=== PATIENT | female | born 1940 | race Caucasian/White ===

== ENCOUNTER 2021-10-10 09:25 | Observation (INO) | payer MEDICARE, SELFPAY ==
--- NOTE | ~2021-10-10 | CT_ITS ---
EXAMINATION: CT abdomen pelvis w con DATE: 10/10/2021 11:01 INDICATION: Right lower quadrant pain and nausea TECHNIQUE: Computed tomography (CT) of the abdomen and pelvis was performed with 100 cc Omnipaque 350 intravenous contrast. The dose-length product was 244.15 mGy-cm. Automated exposure control and iter ative reconstruction technique were employed. COMPARISON: No prior studies for comparison. FINDINGS: Lung bases are unremarkable. No significant pleural or pericardial effusion. There is mild atherosclerosis of the aorta without aneurysm. Small hiatal hernia. Fatty infiltration of the liver. Gallbladder is present. These spleen contains c alcified granulomas. Mild pancreatic ductal dilation. There are pancreatic calcifications suggesting chronic pancreatitis. There is a right parapelvic renal cyst. There is a thickened enhancing appendix with surrounding inflammation, consistent with acute appendicitis. No evidence for perforation or ab scess. Colonic diverticulosis without evidence for diverticulitis. Moderate lumbar spondylosis partic ularly at L3-4. IMPRESSION: 1. Acute uncomplicated appendicitis. Reviewed, dictated and finalized at location A.
--- NOTE | ~2021-10-10 | XR_ITS ---
EXAMINATION: XR chest 2V 10/10/2021 10:56 INDICATION: Abdominal pain PROCEDURE: 2 view chest COMPARISON: No prior studies for comparison. FINDINGS: The lungs are clear. The cardiomediastinal silhouette is within normal limits. There are no pleural effusions. There is no pneumothorax suspected. IMPRESSION: 1: NO ACUTE CARDIOPULMONARY DISEASE. Reviewed, dictated and finalized at location A.
[2021-10-10 09:30] VITALS: BP 121/66; PULSE 110; RESP 18; TEMP 36.7; O2SAT 99
--- NOTE | 2021-10-10 09:40 | ECG_ITS ---
Measurements Intervals [place] Rate: 106 P: 90 [place]: 187 QRS: 40 QRSD: 81 T: 66 QT: 345 QTc: 458 Interpretive Statements SINUS TACHYCARDIA NONSPECIFIC ST & T-WAVE ABNORMALITY ABNORMAL ECG NO PREVIOUS ECG AVAILABLE FOR COMPARISON Electronically Signed On 10-10-2021 12:20:51 CDT by Nasir Onofre M.D.
[2021-10-10 09:44] LABS: Basophils Percent Auto 0.2 % (0.2-1.2); Hematocrit 39.3 % (37.0-47.0); Hemoglobin 13.1 g/dL (12.0-15.0); Immature Granulocyte Absolute 0.06 K/mm3 (0.00-0.031); Immature Granulocyte Percent A 0.4 % (0-0.5); Lymphocytes Absolute Auto 0.81 K/mm3 (0.9-3.2); Lymphocytes Percent Auto 5.3 % (18.3-44.2); Mean Corpuscular HGB Conc 33.3 g/dl (32-36); Mean Corpuscular Hemoglobin 31.7 pg (26-34); Mean Corpuscular Volume 95.2 fl (80-100); Mean Platelet Volume 9.8 fl (7.4-10.4); Monocytes Absolute Auto 0.9 K/mm3 (0.1-0.6); Monocytes Percent Auto 6.1 % (2.6-8.5); Neutrophils Absolute Auto 13.4 K/mm3 (1.3-6.7); Platelet Count Result 166 k/mm3 (150-375); Red Blood Count 4.13 M/mm3 (4.2-5.4); Red Cell Distribution Width 13.2 % (11.5-14.5); White Blood Count 15.2 K/mm3 (4.5-10.0)
[2021-10-10 09:56] LABS: Alanine Aminotransferase 26 U/L (4-35); Albumin Level 4.8 g/dL (3.5-5.1); Alkaline Phosphatase 45 U/L (38-126); Anion Gap 8 mmol/L (8-16); Aspartate Amino Transferase 30 U/L (14-36); Bilirubin,Total 0.8 mg/dL (0.2-1.3); Blood Urea Nitrogen 17 mg/dL (7-17); Calcium 9.5 mg/dL (8.4-10.2); Carbon Dioxide 28 mmol/L (22-30); Chloride 100 mmol/L (98-107); Estimated CRCL calculation 39 ml/min; Estimated Glomerular Filt Rate > 60; Glucose 132 mg/dL (65-110); Lipase 70 U/L (23-300); Potassium 3.8 mmol/L (3.4-5.0); Sodium 136 mmol/L (137-145)
--- NOTE | 2021-10-10 09:59 | ED.ABDPAIN ---
HPI - Abdominal Pain General Chief Complaint: Abdominal Pain <Kourtney Bowman APRN - Last Filed: 10/10/21 13:17> Stated Complaint: abd pain <Kourtney Bowman SALES LEAD - Last Filed: 10/10/21 13:17> Time Seen by Provider: 10/10/21 09:39 <Kourtney Bowman APRN - Last Filed: 10/10/21 13:17> Source: patient <Kourtney Bowman APRN - Last Filed: 10/10/21 13:17> Mode of arrival: ambulatory <Kourtney Bowman APRN - Last Filed: 10/10/21 13:17> Limitations: no limitations <Kourtney Bowman APRN - Last Filed: 10/10/21 13:17> History of Present Illness HPI narrative: 81-year-old female presents today with complaints of nausea and abdominal pain that started last night around suppertime. Patient states she thought that it was from the fish that she ate. Patient arrived at the restaurant at 6 started with upper abdominal pain with some nausea at 7. Patient denies fever, constipation, diarrhea, body aches, or chills. Patient does have a history of SIBO. Patient denies any abdominal surgeries in the past. <Kourtney Bowman APRN - Last Filed: 10/10/21 13:17> Related Data Home Medications: Home Medications Medication Instructions Recorded Confirmed atorvastatin 10/10/21 10/10/21 duloxetine mg PO 10/10/21 duloxetine mg PO 10/10/21 famotidine 10/10/21 mirabegron [Myrbetriq] mg PO 10/10/21 pantoprazole PO 10/10/21 <Kourtney Bowman APRN - Last Filed: 10/10/21 13:17> Allergies/Adverse Reactions: Allergies Allergy/AdvReac Type Severity Reaction Status Date / Time No Known Allergies Allergy Verified 10/10/21 09:34 <Kourtney Bowman APRN - Last Filed: 10/10/21 13:17> Review of Systems Review of Systems: CONSTITUTIONAL: Denies fever, chills, or sweats. EYES: Denies visual changes, redness, or discharge. ENT: Denies rhinorrhea, congestion, sore throat, or otalgia. CARDIOVASCULAR: Denies chest pain, palpitations, or edema. RESPIRATORY: Denies cough or dyspnea. GASTROINTESTINAL: Nausea and abdominal pain. One small emesis. Denies constipation or diarrhea. GENITOURINARY: Denies dysuria or hematuria. SKIN: Denies rash or itching. MUSCULOSKELETAL: Denies back pain, joint pain, or myalgia. NEUROLOGIC: Denies headache, numbness, dizziness, or weakness. PSYCHIATRIC: Denies anxiety or depression. <Kourtney Bowman APRN - Last Filed: 10/10/21 13:17> [facility] Past Medical History Medical History: Medical History (Updated 10/10/21 @ 13:17 by Kourtney Bowman APRN) Small intestinal bacterial overgrowth (SIBO) <Kourtney Bowman APRN - Last Filed: 10/10/21 13:17> Exam Narrative: GENERAL: Well-appearing, well-nourished, and in no acute distress. HEAD: Normocephalic, atraumatic. EYES: PERRLA and EOMI. ENT: Nares clear, no rhinorrhea or epistaxis. Mucous membranes moist. Oropharynx without tonsillar hypertrophy exudate or other lesions. Bilateral TMs pearly baez nonbulging NECK: Supple. No adenopathy or masses. No carotid bruits or JVD CHEST: Clear to auscultation. No respiratory distress. No wheezes rales or rhonchi HEART: Regular rate and rhythm. No murmur heard. Normal peripheral pulses. ABDOMEN: Right lower quadrant tenderness and guarding. Soft nondistended, normal active bowel sounds. EXTREMITIES: Normal range of motion. No edema. SKIN: Warm, dry, no rash. NEURO: No focal deficits. Alert and oriented x3. PSYCH: Normal mood and affect. <Kourtney Bowman APRN - Last Filed: 10/10/21 13:17> Course Course Emergency Course: Labs and CT reviewed with patient and daughter. Patient aware of admission and need for IV abx. All in agreement with plan of care. <Kourtney Bowman APRN - Last Filed: 10/10/21 13:17> MATH AND PHYSICS INSTRUCTOR/PA Physician Supervision For this encounter, I have reviewed the MATH AND PHYSICS INSTRUCTOR documentation, treatment plan and medical decision making: And I have had [id number] time with the patient. On exam the abdomen is soft tenderness palpation the right lower quadrant mild tenderness
[2021-10-10 10:14] LABS: Troponin I < 0.012 ng/mL (0.000-0.034)
[2021-10-10 10:16] LABS: CRP 2.2 mg/dL (<1.0)
[2021-10-10 10:34] LABS: Add Urine Microscopic? YES; Amorphous Sediment Urine Few; Appearance Urine Cloudy (Clear); Bilirubin Urine Negative (Negative); Blood Urine 1+ (Negative); Color Urine Yellow (Yellow); Glucose Urine UA Negative (Negative); Ketones Urine Negative (Negative); Leukocyte Esterase Ur Negative LEU/UL (Negative); Mucus Urine Rare /lpf; Nitrate Urine Negative (Negative); Protein Urine Negative (Negative); Specific Grav Ur 1.016 (1.001-1.035); Urobilinogen Urine Negative mg/dL (<2.0)
[2021-10-10 10:39] LABS: Lactic Acid Reflex 1.6 mmol/L (0.7-2.1)
[2021-10-10 10:40] LABS: Partial Thromboplastin Time 23.6 SECONDS (22.3-36.8); Prothrombin Time 12.6 Seconds (11.1-14.7)
[2021-10-10] MEDS: SODIUM CHLORIDE 0.9% IV 1,000 ML 999 ML IV CONT (11:01)
[2021-10-10 11:28] VITALS: BP 117/67; PULSE 101; RESP 20; O2SAT 99
[2021-10-10 12:53] VITALS: BP 112/67; PULSE 101; RESP 16; TEMP 36.9; O2SAT 97
[2021-10-10 12:54] VITALS: BMI 24.2
[2021-10-10] MEDS: SODIUM CHLORIDE 0.9% IV 1,000 ML 125 ML IV CONT ×2 (12:54→21:33)
[2021-10-10 13:15] VITALS: BMI 24.2
--- NOTE | 2021-10-10 13:52 | ADMGEN ---
This patient, Sana Diez, was admitted to Medical Room 344-01. Patient/family oriented to hospital policies and general routines including ID bracelet, bed and alarms, visiting hours, pain management, procedures, bathroom and other care routines, personal items, smoking policy, room service/diet, and visiting hours. Information on how to activate the Rapid Response Team has been discussed. Patient/Family are encouraged to report perceived risks to care and to ask questions if they do not understand what they are told or what they should do.
--- NOTE | 2021-10-10 14:10 | PM.IMHP ---
H&P: HPI History of Present Illness Date/Time: 10/10/21 14:10 Chief Complaint: Mid and lower abdominal pain Narrative: This patient is a pleasant 81-year-old white female who is in the ED with her daughter when I interviewed them. She states that last evening she began having mid to lower abdominal pain and has more centered in the right lower quadrant now. Since arriving in the ER is more centered in the right lower quadrant and she has less pain than when she presented. ( patient was not sure whether she had received pain medicine here or not). She came today with complaints of nausea and abdominal pain that started last night around suppertime. Patient states she thought that it was from the fish that she ate. Patient arrived at the restaurant at 6 PM and then started with upper abdominal pain with some nausea at about 7PM . Patient denies fever, constipation, diarrhea, body aches, or chills. Patient does have a history of SIBO. Has not had recent problems with this. Patient initially denies any abdominal surgeries in the past then remember that she had had a tubal ligation bout 30 years ago.. ER workup included a CT scan which showed acute uncomplicated appendicitis. See plan below. Review of Systems Review of Systems: All systems reviewed & are unremarkable except as noted in HPI and below (HPI) Constitutional: Constitutional: Reports as per HPI, Denies chills and Denies fever(s) Eyes: Eyes: Reports no additional eye complaints ENT: Reports Normal hearing present and Denies dizziness Cardiovascular: Cardiovascular: Reports no additional cardiovascular complaints, Denies chest pain and Denies irregular heart rhythm Respiratory: Respiratory: Reports no additional respiratory complaints Gastrointestinal: Gastrointestinal: Reports no additional gastrointestinal complaints, Denies abdominal pain and Denies bloating Comments: Apparent history of bacterial overgrowth in the small bowel History of GERD on amantadine morning's and PPI (pantoprazole ) evenings Genitourinary: Genitourinary: Denies hematuria Comments: history of tubal ligation but no other heidi knee surgeries. Musculoskeletal: Musculoskeletal: Denies back pain Integumentary/Breasts: Skin/Breast: Reports system reviewed and no additional complaints, except as docu Neurologic: Reports Normal hearing present, Denies Abnormal speech present, Denies confusion and Denies dizziness Psychiatric: Psychiatric: Reports no additional psychiatric complaints and Denies confusion Endocrine: Endocrine: Reports no additional endocrine complaints Hematologic/Lymphatic: Hematologic/Lymphatic: Denies easy bleeding and Denies easy bruising Allergic/Immunologic: Allergic/Immunologic: Reports no additional allergic/immunologic complaints [facility] Past Medical History Medical History (Updated 10/10/21 @ 14:15 by Vicente Stahl MD) GERD without esophagitis (Unknown) Small intestinal bacterial overgrowth (SIBO) Surgical History Surgical History (Updated 10/10/21 @ 14:11 by Vicente Stahl MD) Hx of tubal ligation Social History Social History Smoking status: Never smoker Alcohol intake: current Drinks per week: 3 Substance use: never Spiritual care concerns: No Meds Home Medications and Allergies Home Medications Medication Instructions Recorded Confirmed Type aspirin 81 mg PO DAILY 10/10/21 10/10/21 History atorvastatin 10 mg PO DAILY 10/10/21 10/10/21 History clonazepam 0.5 mg PO DAILY PRN 10/10/21 10/10/21 History duloxetine 60 mg PO DAILY 10/10/21 10/10/21 History famotidine 40 mg PO DAILY 10/10/21 10/10/21 History levomefolate calcium 15 mg PO DAILY 10/10/21 10/10/21 History [L-Methylfolate] magnesium 400 mg PO DAILY 10/10/21 10/10/21 History mirabegron [Myrbetriq] 50 mg PO DAILY 10/10/21 10/10/21 History pantoprazole 40 mg PO DAILY 10/10/21 10/10/21 History potassium 99
[2021-10-10 17:04] VITALS: O2SAT 97
[2021-10-10 20:31] VITALS: BP 107/59; PULSE 93; RESP 18; TEMP 36.1; O2SAT 99
[2021-10-10] MEDS: traZODone HCL 50 MG TABLET PO (21:48)
[2021-10-11 05:13] VITALS: BP 103/52; PULSE 88; RESP 18; TEMP 36.1; O2SAT 99
[2021-10-11 05:36] LABS: Basophils Percent Auto 0.1 % (0.2-1.2); Eosinophils Absolute Auto 0.1 K/mm3 (0-0.3); Eosinophils Percent Auto 1.5 % (0-4.4); Hematocrit 32.5 % (37.0-47.0); Hemoglobin 10.5 g/dL (12.0-15.0); Immature Granulocyte Absolute 0.03 K/mm3 (0.00-0.031); Immature Granulocyte Percent A 0.4 % (0-0.5); Immature Platelet Fraction Pct 2.8 % (0.9-11.2); Lymphocytes Absolute Auto 1.28 K/mm3 (0.9-3.2); Lymphocytes Percent Auto 15.6 % (18.3-44.2); Mean Corpuscular HGB Conc 32.3 g/dl (32-36); Mean Corpuscular Hemoglobin 31.4 pg (26-34); Mean Corpuscular Volume 97.3 fl (80-100); Mean Platelet Volume 9.9 fl (7.4-10.4); Monocytes Absolute Auto 0.6 K/mm3 (0.1-0.6); Monocytes Percent Auto 7.2 % (2.6-8.5); Neutrophils Absolute Auto 6.2 K/mm3 (1.3-6.7); Neutrophils Percent Auto 75.2 % (45.5-73.1); Platelet Count Result 132 k/mm3 (150-375); Red Blood Count 3.34 M/mm3 (4.2-5.4); Red Cell Distribution Width 13.6 % (11.5-14.5); White Blood Count 8.2 K/mm3 (4.5-10.0)
[2021-10-11 05:44] LABS: Alanine Aminotransferase 33 U/L (4-35); Albumin Level 3.2 g/dL (3.5-5.1); Alkaline Phosphatase 33 U/L (38-126); Anion Gap 2 mmol/L (8-16); Aspartate Amino Transferase 38 U/L (14-36); Bilirubin,Total 0.8 mg/dL (0.2-1.3); Blood Urea Nitrogen 13 mg/dL (7-17); Calcium 7.7 mg/dL (8.4-10.2); Carbon Dioxide 24 mmol/L (22-30); Chloride 112 mmol/L (98-107); Estimated CRCL calculation 35 ml/min; Estimated Glomerular Filt Rate 60; Glucose 99 mg/dL (65-110); Potassium 3.6 mmol/L (3.4-5.0); Sodium 138 mmol/L (137-145)
[2021-10-11] MEDS: SODIUM CHLORIDE 0.9% IV 1,000 ML 125 ML IV CONT (05:53)
--- NOTE | 2021-10-11 07:34 | PM.PNGS ---
Progress Note: A&P Assessment and Plan (1) Acute appendicitis, uncomplicated: Onset Date: ~10/10/21 Code(s): K35.80 - Unspecified acute appendicitis Status: Acute Assessment and Plan: Patient seems to be responding well to conservative management with IV antibiotics. White count is down to normal patient is developing an appetite and has had no fever. She continues to have some tenderness on exam but feels as if she can get up and move. (2) GERD without esophagitis: Onset Date: Unknown Code(s): K21.9 - Gastro-esophageal reflux disease without esophagitis Status: Acute Assessment and Plan: Continue IV ppi this morning but change to p.o. this afternoon doing well. (3) Small intestinal bacterial overgrowth (SIBO): Onset Date: Unknown Code(s): K63.89 - Other specified diseases of intestine Status: Acute Assessment and Plan: Not really addressed during this admission. Time Spent With Patient Time with patient: 15 - 25 minutes Subjective Subjective Date/Time Seen: 10/11/21 07:34 Patient lying comfortably in bed when I entered the room. She states she still has some tenderness in the right lower quadrant but if no one is pushing not much pain less she rolls on that side. She has had a couple bowel movements overnight. She is not having nausea and is hungry. Review of Systems Review of Systems: All systems reviewed & are unremarkable except as noted in HPI and below Constitutional: Constitutional: Reports as per HPI, Denies chills and Denies fever(s) Cardiovascular: Cardiovascular: Denies chest pain and Denies dyspnea Respiratory: Respiratory: Reports no additional respiratory complaints and Denies dyspnea Gastrointestinal: Gastrointestinal: Reports as per HPI and Denies bloating Musculoskeletal: Musculoskeletal: Reports no additional musculoskeletal complaints Neurologic: Denies memory loss Psychiatric: Psychiatric: Denies anxiety and Denies memory loss Exam Const: General: cooperative, comfortable, alert and awake Orientation/consciousness: patient oriented x3 HENMT: Head: normal to inspection Mouth: Yes moist mucous membranes Eyes: Sclera: sclerae normal Pupils: Equal, round and reactive pupils present Neck: Neck: normal visual inspection and no JVD Chest: Chest palpation & inspection: normal inspection of the chest Resp: Effort & Inspection: normal respiratory effort Auscultation: clear to auscultation bilaterally Cardio: Jugular venous distension: no JVD Rate: regular rate GI: Inspection: normal to inspection GI Palp: Yes Soft to palpation and Yes Tenderness to palpation present (GI) ( Right lower quadrant with mild guarding) Other: no tenderness in any of the the other quadrants on exam. Neuro: General: patient oriented x3 Cranial nerves: Yes Equal, round and reactive pupils present Objective Data Vital Signs Vital Signs: Vital Signs - 24 hr 10/10/21 09:30 10/10/21 11:28 10/10/21 12:53 Temperature 36.7 C 36.9 C Pulse Rate 110 H 101 H 101 H Respiratory Rate 18 20 16 Blood Pressure 121/66 117/67 112/67 Pulse Oximetry 99 99 97 10/10/21 17:04 10/10/21 20:31 10/11/21 05:13 Temperature 36.1 C L 36.1 C L Pulse Rate 93 88 Respiratory Rate 18 18 Blood Pressure 107/59 L 103/52 L Pulse Oximetry 97 99 99 Intake/Output Intake/Output: Intake & Output 10/08/21 10/09/21 10/10/21 10/11/21 23:59 23:59 23:59 23:59 Intake Total 2780.56 1401.12 Output Total 600 400 Balance 2180.56 1001.12 Meds/Results Medications: Active Medications Generic Name Dose Route Start Last Admin Trade Name Freq PRN Reason Stop Dose Admin Hydrocodone Bitart/Acetaminophen 1 tab 10/10/21 12:03 Hydrocodone/Acetaminophen (*Crx) 5-325 Mg Tablet PO Q6H PRN Pain Rated 4-6 Clonazepam 0.5 mg 10/10/21 21:28 Clonazepam (*Crx) 0.5 Mg Tablet PO DAILY PRN Anxiety Duloxetine HCl 30 mg
[2021-10-11 08:00] VITALS: PULSE 88; RESP 18; O2SAT 97
[2021-10-11 08:39] VITALS: O2SAT 97
[2021-10-11] MEDS: PANTOPRAZOLE SODIUM IV 40 MG VIAL IV PUSH (09:09)
[2021-10-11] MEDS: DULoxetine HCL 30 MG CAPSULE.DR PO (09:09)
[2021-10-11] MEDS: MIRABEGRON 50 MG ER TABLET PO (09:09)
[2021-10-11 14:00] VITALS: BP 104/60; PULSE 98; RESP 16; TEMP 36.6; O2SAT 97
[2021-10-11 20:01] VITALS: BP 112/63; PULSE 99; RESP 18; TEMP 36.4; O2SAT 98
[2021-10-11] MEDS: HYDROcodone/acetaminophen (*CRX) 5-325 MG TABLET 1 TAB PO (20:07)
[2021-10-11 20:13] VITALS: O2SAT 98
[2021-10-11] MEDS: FAMOTIDINE 20 MG TABLET PO (23:08)
[2021-10-11] MEDS: traZODone HCL 50 MG TABLET PO (23:09)
[2021-10-12 05:26] LABS: Basophils Percent Auto 0.5 % (0.2-1.2); Eosinophils Absolute Auto 0.3 K/mm3 (0-0.3); Eosinophils Percent Auto 4.7 % (0-4.4); Hematocrit 32.3 % (37.0-47.0); Hemoglobin 10.6 g/dL (12.0-15.0); Immature Granulocyte Absolute 0.01 K/mm3 (0.00-0.031); Immature Granulocyte Percent A 0.2 % (0-0.5); Lymphocytes Percent Auto 25.6 % (18.3-44.2); Mean Corpuscular HGB Conc 32.8 g/dl (32-36); Mean Corpuscular Hemoglobin 31.7 pg (26-34); Mean Corpuscular Volume 96.7 fl (80-100); Monocytes Absolute Auto 0.7 K/mm3 (0.1-0.6); Monocytes Percent Auto 9.8 % (2.6-8.5); Neutrophils Absolute Auto 3.9 K/mm3 (1.3-6.7); Neutrophils Percent Auto 59.2 % (45.5-73.1); Platelet Count Result 126 k/mm3 (150-375); Red Blood Count 3.34 M/mm3 (4.2-5.4); Red Cell Distribution Width 13.4 % (11.5-14.5); White Blood Count 6.6 K/mm3 (4.5-10.0)
[2021-10-12 06:23] VITALS: BP 102/56; PULSE 89; RESP 16; TEMP 36.3; O2SAT 97
[2021-10-12 08:00] VITALS: PULSE 89; RESP 16; O2SAT 97
[2021-10-12] MEDS: FAMOTIDINE 20 MG TABLET PO (08:40)
[2021-10-12] MEDS: MIRABEGRON 50 MG ER TABLET PO (08:40)
[2021-10-12] MEDS: DULoxetine HCL 30 MG CAPSULE.DR PO (08:41)
[2021-10-12] MEDS: PANTOPRAZOLE SODIUM IV 40 MG VIAL IV PUSH (08:42)
--- NOTE | 2021-10-12 09:36 | PM.DS ---
DS: Admitting Diagnosis Discharge Date 10/12/21 Admitting Diagnosis Acute uncomplicated appendicitis GERD DS: Discharge Diagnosis Discharge Diagnosis (1) Acute appendicitis, uncomplicated: Onset Date: ~10/10/21 Code(s): K35.80 - Unspecified acute appendicitis Status: Acute (2) GERD without esophagitis: Onset Date: Unknown Code(s): K21.9 - Gastro-esophageal reflux disease without esophagitis Status: Acute Assessment and Plan: Remained stable. Treated with IV Pepcid while NPO. She was then switched back to oral Pepcid once tolerating a diet. Continue home medication on discharge. Follow-up with PCP. DS: Summary Hospital Course Reason for hospitalization: This is an 81-year-old female with a history of GERD who presented to the ED with lower abdominal pain. Once she arrived to the ER, the pain localized to the right lower quadrant. Workup in the ED showed acute uncomplicated appendicitis on the CT scan. Labs [place] [id number]. She was admitted to the hospital under our service for surgical evaluation of acute appendicitis. Hospital Course: The patient was admitted and started on IV Zosyn, IV fluids, and initially made NPO. She had discussed treatment options with the surgeon and decided to proceed with conservative management with antibiotics and monitoring. Her abdominal pain improved and her white blood cell count normalized. She remained afebrile. She was advanced on a diet and is currently tolerating solid foods. Labs were monitored and remained stable. The patient is now stable for discharge. She will be transitioned to oral antibiotics for another 7 days after discharge. She will then follow up with Dr. Stahl next week after completing the course of oral antibiotics. Status at Discharge Functional status at discharge: independent ambulation Overall status at discharge: patient is progressing back to baseline Time Spent with Patient Time attestation: Total time spent providing and/or coordinating discharge services: Time spent: Less than 30 minutes Exam Const: General: no acute distress, alert and awake Orientation/consciousness: patient oriented x3 Resp: Effort & Inspection: no respiratory distress Auscultation: clear to auscultation bilaterally Cardio: Rate: regular rate Rhythm: regular rhythm Heart sounds: S1 normal heart sound present and S2 normal heart sound present GI: Inspection: normal to inspection, non-distended and no visible herniation GI Palp: Yes Soft to palpation, Yes Tenderness to palpation present (GI) (RLQ), No Guarding due to palpation present (GI) and No Rebound tenderness present Auscultation: normal bowel sounds Rectal Exam: deferred Skin: General skin exam: normal color Neuro: General: moves all extremities and no focal motor deficits Extrem: General: normal to inspection Psych: Insight: Good insight present (Psych) Judgement: Good judgement present (Psych) DS: Data Data Completed and Pending Labs on day of discharge: Labs from last 24 hours 10/12/21 10/10/21 05:20 10:16 WBC 6.6 RBC 3.34 L Hgb 10.6 L Hct 32.3 L MCV 96.7 MCH 31.7 MCHC 32.8 RDW 13.4 Plt Count 126 L MPV 10.0 Immature Gran % (Auto) 0.2 Neut % (Auto) 59.2 Lymph % (Auto) 25.6 [place] % (Auto) 9.8 H Eos % (Auto) 4.7 H Baso % (Auto) 0.5 Lymph # (Auto) 1.70 [place] # (Auto) 0.7 H Eos # (Auto) 0.3 Baso # (Auto) 0.0 Abs Immat Gran (auto) 0.01 Absolute Neuts (auto) 3.9 Absolute Nucleated RBC 0.0 Nucleated RBC % 0.0 Urine Color Yellow Urine Appearance Cloudy H Urine pH 8.0 Ur Specific [place] 1.016 Urine Protein Negative Urine Glucose (UA) Negative Urine Ketones Negative Ur Blood (Man) 1+ H Urine Nitrate Negative Urine Bilirubin Negative Urine Urobilinogen Negative Leukocyte Esterase Rfl Negative Urine RBC 11-20 H Amorphous Sediment Few H Urine
== END 2021-10-12 12:18 | disposition home or self-care (01) ==
LOC: ANHED 10:35 → ANH3MED 13:17
PROVIDERS: Emergency Medicine; Admitting Provider Surgery; Emergency Provider Nurse Practitioner Family; PCP Internal Medicine; Visit Provider Surgery
DX: K35.80 Unspecified acute appendicitis (principal); K63.89 Other specified diseases of intestine; K21.9 Gastro-esophageal reflux disease without esophagitis; Z79.82 Long term (current) use of aspirin
CPT/HCPCS: 36415; 71046; 74177; 80053; 81001; 83605; 83690; 84484; 85025; 85055; 85610; 85730; 86140; 87040; 87147; 87181; 87186; 93005; 96361; 96365; 96366; 96375; 96376; 99285; A9270; C9113; G0378; J0131; J2543; J7030; Q9967

== ENCOUNTER 2021-11-08 02:11 | Emergency (ER) | payer MEDICARE, SELFPAY ==
--- NOTE | ~2021-11-08 | CT_ITS ---
EXAMINATION: CT abdomen pelvis w con DATE: 11/08/2021 03:50 INDICATION: Abdominal pain. Nausea and vomiting. TECHNIQUE: Computed tomography (CT) of the abdomen and pelvis was performed with 100 mL Omnipaque 350 intravenous contrast. Automated exposure control and iterative reconstruction technique were employe d. The dose-length product was 255.84 mGy-cm. COMPARISON: CT abdomen and pelvis 10/10/2021 FINDINGS: The visualized portions of the lung bases demonstrate mild atelectasis. A calcified left saúl ng nodule is consistent with old granulomatous disease. No pleural effusion. The heart size is normal . No pericardial effusion. The liver, gallbladder, spleen, pancreas, adrenal glands are normal. There are cysts in the kidneys measuring up to 3.1 cm on the right. There is diverticulosis of the colon w ithout evidence of diverticulitis. The appendix is normal. There are no dilated loops of bowel. There is a small sliding hiatal hernia. There are no pathologically enlarged lymph nodes. There is no free intraperitoneal fluid. There is severe lumbar spondylosis. Partially visualized is a nonaggressive l ytic lesion in proximal right femur, likely benign. IMPRESSION: 1. No etiology for the patient's symptoms. Reviewed, dictated and finalized at location A.
[2021-11-08 02:15] VITALS: BP 137/82; PULSE 97; RESP 18; TEMP 36.2; O2SAT 99
[2021-11-08 02:46] VITALS: BP 131/69; PULSE 77; RESP 16; O2SAT 95
[2021-11-08] MEDS: ONDANSETRON INJ 4 MG/2 ML VIAL IV PUSH (02:59)
[2021-11-08 03:01] VITALS: BP 111/67; PULSE 81; RESP 23; O2SAT 95
--- NOTE | 2021-11-08 03:05 | ED.GENADULT ---
HPI - General Adult General Chief complaint: Abdominal Pain Stated complaint: Abd pain Time Seen by Provider: 11/08/21 02:28 Source: patient, family, RN notes reviewed and old records reviewed Mode of arrival: ambulatory Limitations: no limitations History of Present Illness HPI narrative: 81-year-old female presenting to the emergency department for evaluation of worsening abdominal pain. Patient was diagnosed with acute appendicitis approximately 3 weeks ago and was treated with IV and p.o. antibiotics for approximately 10 days. Patient states she had been feeling completely improved but last night began having worsening pain that she describes as being identical to her previous appendicitis. Patient describes an upper abdominal pain that radiates down to her right lower quadrant. Patient did report associated nausea and vomiting. Patient denies any prior history of abdominal surgery. Related Data Home Medications Medication Instructions Recorded Confirmed Myrbetriq 50 mg PO DAILY 10/10/21 11/03/21 aspirin 81 mg PO DAILY 10/10/21 11/03/21 atorvastatin 10 mg PO DAILY 10/10/21 11/03/21 clonazepam 0.5 mg PO DAILY PRN 10/10/21 11/03/21 duloxetine 60 mg PO DAILY 10/10/21 11/03/21 famotidine 40 mg PO DAILY 10/10/21 11/03/21 levomefolate calcium 15 mg PO DAILY 10/10/21 11/03/21 [L-Methylfolate] magnesium 400 mg PO DAILY 10/10/21 11/03/21 pantoprazole 40 mg PO DAILY 10/10/21 11/03/21 potassium 99 mg PO DAILY 10/10/21 11/03/21 trazodone 50 mg PO HS 10/10/21 11/03/21 Allergies Allergy/AdvReac Type Severity Reaction Status Date / Time No Known Allergies Allergy Verified 11/08/21 02:17 Review of Systems Review of Systems: CONSTITUTIONAL: Denies fever, chills, or sweats. EYES: Denies visual changes, redness, or discharge. ENT: Denies rhinorrhea, congestion, sore throat, or otalgia. CARDIOVASCULAR: Denies chest pain, palpitations, or edema. RESPIRATORY: Denies cough or dyspnea. GASTROINTESTINAL: Upper abdominal pain that radiates to her right lower quadrant. Associated nausea GENITOURINARY: Denies dysuria or hematuria. SKIN: Denies rash or itching. MUSCULOSKELETAL: Denies back pain, joint pain, or myalgia. NEUROLOGIC: Denies headache, numbness, or weakness. [facility] Past Medical History Medical History GERD without esophagitis (Unknown) Small intestinal bacterial overgrowth (SIBO) (Unknown) Surgical History Surgical History Hx of tubal ligation Social History Social History Smoking status: Never smoker Alcohol intake: current Drinks per week: 3 Substance use: never Spiritual care concerns: No Exam Narrative: APPEARANCE: Well appearing, no pain, no distress, well-nourished. HEAD: normocephalic, atraumatic. EYES: PERRLA/EOMI, conjunctivae clear. NECK: Supple. No adenopathy, no masses. RESPIRATORY: Airway patent, respirations nonlabored. Clear to auscultation bilaterally, no rales, rhonchi, wheezing. CARDIOVASCULAR: Regular rate and rhythm without murmurs rubs or gallops. ABDOMINAL: Soft, normal bowel sounds. Nondistended. Mild upper abdominal tenderness to palpation. MUSCULOSKELETAL: Moves all extremities. Strength/ROM intact, No edema, No calf tenderness. NEURO: Alert. Cranial nerves II through XII intact. Grossly intact SKIN: Warm, dry. Normal Color PSYCHIATRIC: Normal affect/mood. Course Course Emergency Course: Patient was updated on the results of her labs and imaging. CT was concerned about the size of her pancreatic duct at 3 mm. Patient did have some upper abdominal pain/tenderness but her lipase is within normal limits. On reevaluation patient states that her pain is resolved. Patient denies any complaints at this time. Patient was encouraged to have close follow-up with her primary care physician. Vital Signs Vital signs:
[2021-11-08 03:08] LABS: Basophils Percent Auto 0.3 % (0.2-1.2); Eosinophils Absolute Auto 0.2 K/mm3 (0-0.3); Eosinophils Percent Auto 2.1 % (0-4.4); Hematocrit 43.5 % (37.0-47.0); Hemoglobin 14.3 g/dL (12.0-15.0); Immature Granulocyte Absolute 0.03 K/mm3 (0.00-0.031); Immature Granulocyte Percent A 0.3 % (0-0.5); Lymphocytes Absolute Auto 2.25 K/mm3 (0.9-3.2); Lymphocytes Percent Auto 25.1 % (18.3-44.2); Mean Corpuscular HGB Conc 32.9 g/dl (32-36); Mean Corpuscular Volume 94.4 fl (80-100); Mean Platelet Volume 10.4 fl (7.4-10.4); Monocytes Absolute Auto 0.7 K/mm3 (0.1-0.6); Monocytes Percent Auto 7.5 % (2.6-8.5); Neutrophils Absolute Auto 5.8 K/mm3 (1.3-6.7); Neutrophils Percent Auto 64.7 % (45.5-73.1); Platelet Count Result 186 k/mm3 (150-375); Red Blood Count 4.61 M/mm3 (4.2-5.4); Red Cell Distribution Width 13.5 % (11.5-14.5)
[2021-11-08 03:16] VITALS: BP 107/66; PULSE 75; RESP 14; O2SAT 95
[2021-11-08 03:17] LABS: Lactic Acid Reflex 0.9 mmol/L (0.7-2.1)
[2021-11-08 03:18] LABS: Alanine Aminotransferase 28 U/L (4-35); Albumin Level 4.8 g/dL (3.5-5.1); Alkaline Phosphatase 57 U/L (38-126); Anion Gap 10 mmol/L (8-16); Aspartate Amino Transferase 40 U/L (14-36); Bilirubin,Total 0.2 mg/dL (0.2-1.3); Blood Urea Nitrogen 21 mg/dL (7-17); Calcium 9.7 mg/dL (8.4-10.2); Carbon Dioxide 26 mmol/L (22-30); Chloride 103 mmol/L (98-107); Estimated Glomerular Filt Rate 60; Glucose 107 mg/dL (65-110); Lipase 139 U/L (23-300); Potassium 4.1 mmol/L (3.4-5.0); Sodium 139 mmol/L (137-145)
[2021-11-08 04:18] LABS: Appearance Urine Clear (Clear); Bilirubin Urine Negative (Negative); Color Urine Yellow (Yellow); Glucose Urine UA Negative (Negative); Ketones Urine Negative (Negative); Leukocyte Esterase Ur Trace LEU/UL (Negative); Nitrate Urine Negative (Negative); Protein Urine Negative (Negative); Specific Grav Ur 1.015 (1.001-1.035); Urobilinogen Urine 0.2 mg/dL (<2.0); pH Urine 6.5 (5.0-9.0)
[2021-11-08 04:19] LABS: Add Urine Microscopic? YES; Blood Urine Trace-Intact (Negative)
[2021-11-08 04:21] LABS: Mucus Urine Rare /lpf; Squamous Epithelial Cell Urine Rare /hpf (Few); WBC Urine 0-3 /hpf
[2021-11-08 06:16] VITALS: BP 103/63; PULSE 99; RESP 20; O2SAT 94
== END 2021-11-08 07:10 | disposition home or self-care (01) ==
PROVIDERS: Emergency Provider Emergency Medicine; PCP Internal Medicine
DX: R10.9 Unspecified abdominal pain (principal); K21.9 Gastro-esophageal reflux disease without esophagitis; Z79.82 Long term (current) use of aspirin
CPT/HCPCS: 36415; 74177; 80053; 81001; 83605; 83690; 85025; 96374; 99284; J2405; Q9967

== ENCOUNTER 2022-03-23 11:08 | Emergency (ER) | payer MEDICARE, SELFPAY ==
--- NOTE | ~2022-03-23 | CT_ITS ---
EXAMINATION: CT brain wo con DATE: 03/23/2022 12:33 INDICATION: Thrown from horse. Struck head on fence post, TECHNIQUE: Computed tomography (CT) of the head was performed without intravenous contrast. The mA wa s adjusted according to patient size. Iterative reconstruction technique was employed. Exam dose: 68 1.00 mGy-cm total exam DLP. COMPARISON: None FINDINGS: , Bilateral vertebral artery and carotid siphon and supraclinoid internal carotid artery ca lcifications. There is nonspecific diminished attenuation of the cerebral white matter, likely due to chronic small vessel ischemic changes. No intracranial mass lesion or hemorrhage or cerebrovascular accident is detected. No midline shift o r mass effect effect. There is moderate cerebral and cerebellar volume loss. No subdural or epidural hematoma. No orbital m ass lesion. The mastoid air cells and included paranasal sinuses are normally developed and aerated. No fracture or bone destruction of the cranial vault. IMPRESSION: Cerebral atherosclerosis and chronic small vessel ischemic changes of the cerebral white matter No skull fracture or acute intracranial finding Reviewed, dictated and finalized at [facility]. Reviewed, dictated and finalized at [facility].
--- NOTE | ~2022-03-23 | XR_ITS ---
EXAMINATION: XR hip LT 2V w AP pelvis DATE: 03/23/2022 13:05 INDICATION: Left hip injury. TECHNIQUE: An anteroposterior pelvis and 2 views of left hip were obtained. COMPARISON: CT abdomen and pelvis 11/08/2021 FINDINGS: There is lumbar levocurvature and severe spondylosis. No fracture. There is mild osteoarthr itis of the hips. IMPRESSION: 1. No fracture. 2. Mild osteoarthritis of the hips. Reviewed, dictated and finalized at [facility].
[2022-03-23 11:21] VITALS: BP 128/69; PULSE 76; RESP 20; TEMP 36.7; O2SAT 98
--- NOTE | 2022-03-23 12:19 | ED.FALL ---
HPI - Fall General Chief Complaint: Fall Stated Complaint: fell off horse, left side injury Time Seen by Provider: 03/23/22 12:12 History of Present Illness HPI Narrative: Pt states her orse spun around and she was thrown from it and struck her head and right side on fence post. Pt denies LOC. Pt has and abrasion on her left thigh and has some discomfort above her left hip. Pt denies chest, abdominal or neck pain. Related Data Home Medications Medication Instructions Recorded Confirmed aspirin 81 mg tablet 81 mg PO DAILY 10/10/21 11/03/21 atorvastatin 10 mg tablet 10 mg PO DAILY 10/10/21 11/03/21 clonazepam 0.5 mg tablet 0.5 mg PO DAILY PRN Anxiety 10/10/21 11/03/21 duloxetine 60 mg capsule,delayed 60 mg PO DAILY 10/10/21 11/03/21 release famotidine 40 mg tablet 40 mg PO DAILY 10/10/21 11/03/21 levomefolate calcium 15 mg tablet 15 mg PO DAILY 10/10/21 11/03/21 (L-Methylfolate) magnesium 500 mg tablet 400 mg PO DAILY 10/10/21 11/03/21 mirabegron 50 mg tablet,extended 50 mg PO DAILY 10/10/21 11/03/21 release 24 hr (Myrbetriq) pantoprazole 40 mg tablet,delayed 40 mg PO DAILY 10/10/21 11/03/21 release potassium 99 mg tablet 99 mg PO DAILY 10/10/21 11/03/21 trazodone 50 mg tablet 50 mg PO HS 10/10/21 11/03/21 Allergies Allergy/AdvReac Type Severity Reaction Status Date / Time No Known Allergies Allergy Verified 03/23/22 11:25 Review of Systems Review of Systems: All systems reviewed & are unremarkable except as noted in HPI and below PMFSH Past Medical History Medical History GERD without esophagitis (Unknown) Small intestinal bacterial overgrowth (SIBO) (Unknown) Surgical History Surgical History Hx of tubal ligation Social History Social History Smoking status: Never smoker Alcohol intake: current Drinks per week: 3 Substance use: never Spiritual care concerns: No Exam Const: General: healthy appearing and no acute distress Nutritional Appearance: well nourished Orientation/consciousness: patient oriented x3 Limitations: no limitations Neck: Neck: normal visual inspection Chest: Chest palpation & inspection: normal inspection of the chest Resp: Effort & Inspection: normal respiratory effort Auscultation: clear to auscultation bilaterally Cardio: Rate: regular rate Rhythm: regular rhythm GI: Auscultation: normal bowel sounds Other: no tenderness Back/Spine/Pelvis: Other: tender left flank above asis Skin: Other: abrasion left thigh and lip and nose no swelling or bony tenderness Neuro: General: patient oriented x3 Speech: normal speech Gait exam (Neuro): Normal gait present Extrem: General: no clubbing, cyanosis or edema Other: full ROM left hip and thigh without pain Psych: Mental Status: mental status grossly normal Affect: normal affect Attitude: cooperative Course Vital Signs Vital signs: Vital Signs Temperature 98.1 F 03/23/22 11:21 Pulse Rate 76 03/23/22 11:21 Respiratory Rate 20 03/23/22 11:21 Blood Pressure 128/69 03/23/22 11:21 Pulse Oximetry 98 03/23/22 11:21 Oxygen Delivery Room Air 03/23/22 11:21 Temperature 98.1 F 03/23/22 11:21 Pulse Rate 76 03/23/22 11:21 Respiratory Rate 20 03/23/22 11:21 Blood Pressure 128/69 03/23/22 11:21 Pulse Oximetry 98 03/23/22 11:21 Oxygen Delivery Room Air 03/23/22 11:21 MDM - Fall Lab Data Labs: Lab Results 03/23/22 Range/Units 12:42 Urine Color Yellow (Yellow) Urine Appearance Cloudy H (Clear) Urine pH 7.5 (5.0-9.0) Ur Specific [place] 1.015 (1.001-1.035) Urine Protein Negative (Negative) mg/dL Urine Glucose (UA) Negative (Negative) mg/dL Urine Ketones Negative (Negative) mg/dL Ur Blood (Man) 2+ H (Negative) Urine Nitrate Negative (Negativ
[2022-03-23] MEDS: TETANUS,DIPHTHERIA,AC PERTUSSIS ADULT (0.5 ML) BOOSTRIX IM (12:44)
[2022-03-23 12:58] LABS: Appearance Urine Cloudy (Clear); Bilirubin Urine Negative (Negative); Blood Urine 2+ (Negative); Color Urine Yellow (Yellow); Glucose Urine UA Negative (Negative); Ketones Urine Negative (Negative); Leukocyte Esterase Ur 1+ LEU/UL (Negative); Nitrate Urine Negative (Negative); Protein Urine Negative (Negative); Specific Grav Ur 1.015 (1.001-1.035); Urobilinogen Urine 0.2 mg/dL (<2.0); pH Urine 7.5 (5.0-9.0)
[2022-03-23 13:09] LABS: Add Urine Microscopic? YES; Bacteria Urine 2+ /hpf; Mucus Urine Rare /lpf; RBC Urine 51-75 /hpf (0-2); Squamous Epithelial Cell Urine Rare /hpf (Few); WBC Urine 21-30 /hpf
== END 2022-03-23 14:55 | disposition home or self-care (01) ==
PROVIDERS: Emergency Provider Emergency Medicine; PCP Internal Medicine
DX: S09.90XA Unspecified injury of head, initial encounter (principal); T14.8XXA Other injury of unspecified body region, initial encounter; N39.0 Urinary tract infection, site not specified; K21.9 Gastro-esophageal reflux disease without esophagitis; V80.010A Animal-rider injured by fall from or being thrown from horse in noncollision accident, initial encounter; Z23 Encounter for immunization
CPT/HCPCS: 70450; 73502; 81001; 87086; 87088; 90471; 90715; 99284

== ENCOUNTER 2025-07-23 01:07 | Day surgery (SDC) | payer MEDICARE, SELFPAY ==
[2025-06-28 10:25] VITALS: BMI 23.8
--- OUTSIDE RECORDS SUMMARY | 2025-07-23 01:09 | XMS_ITS ---
Author Organization [facility] Address [address] [place] [address] Phone Care Team Providers Care Log Haul Operator Name Role Phone Bakari [place] MD Primary Care Provider [phone] Active Problems Patient Care Coordination No te Formatting of this note migh t be different from the original. 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 Past Treatment and Therapy Plans No past plan information found. Lifetime Dose Tracking * Chemical Lifetime Dose Automatic Entry Manual Entr y Effective Dose 0.85 mSv 0.85 mSv 0 mSv Total DLP 43.84 DLP 43.84 DLP 0 DLP
--- OUTSIDE RECORDS SUMMARY | 2025-07-23 01:09 | XMS_ITS | Encounter Summary ---
Author Organization [facility] Address [address] [place] [address] Care Team Providers Care Nocturnist Name Role Phone Bakari Colorado MD Primary Care Provider [phone] Encounter Details Date Type Department Care Team (Late st Contact Info) Description 11/06/2008 Outpatient Historical [facility] Gena Tafoya MD [address] [place] [address] [address] [address] Lump or Mass in Breast; Diffuse Cystic Mastopathy; Unspecified Sleep Disturbance; Depressive Disorder, not Elsewhere Classified; Encounter for Long-Term (Current) Use of Aspirin; Encounter for Long-Term (Current) Use of Other Medications Social History Tobacco Use Types Packs/Day Years Used Date Smoking Tobacco: Never Assessed Comments Unknown Sex and Gender Information Value Date Recorded Sex Assigned at Not on file 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 Gender Identity Not on file Sexual Orientation Not on file documented as of this encounter Plan of Treatment Upcoming Encounters Date Type Department Care Team (Late st Contact Info) Description 11/07/2025 12:00 PM CDT Office Visit [facility] [address] [place] [address] Wilbur Dorman MD [address] [facility] [place] [address] [place] [address] 05/08/2026 10:15 AM CDT Office Visit [facility] Oncology and Hematology [facility] [address] [place] [address] Amina Williamson MD [address] [place] [address] documented as of this encounter Procedures Procedure Name Priority Date/Time Associated Diagnosis Comments PATHOLOGY Routine 11/12/2008 11:14 AM CDT MAMMO BREAST SPECIMEN RT Routine 11/12/2008 10:32 AM CDT HEMOGLOBIN AND HEMATOCRIT Stat 11/12/2008 9:20 AM CDT BASIC METABOLIC PANEL Stat 11/12/2008 9:20 AM CDT XR CONSULTATION Routine 11/12/2008 9:11 AM CDT MAMMO NEEDLE LOC EA LESION RT Routine 11/12/2008 9:11 AM CDT MAMMO DIAGNOSTIC UNI RIGHT W OR WO CAD Routine 11/12/2008 9:11 AM CDT documented in this encounter Results * PATHOLOGY (11/12/2008 11:14 AM CDT) FINAL REPORT [facility] [address], [place] [address] Patient: SANA DIEZ : 1940 Procedure Date: 11/12/2008 Accession Date: 11/12/2008 Case No: [id number] Ordering Dr: GENA TAFOYA Case types AW, BW, FW, NW and SH are performed by [facility] [place], [place] SURGICAL PATHOLOGY & NON-GYNECOLOGIC CYTOPATHOLOGY REPORT DIAGNOSIS BREAST, RIGHT, EXCISION: - FIBROCYSTIC CHANGES (SEE MICROSCOPIC). Specimen Description: Right breast biopsy, single clip superior, double clip lateral, triple clip posterior. Operative Procedure: Right breast biopsy with needle localization. Patient Information/Histor y/Diagnosis: Right breast mass. Gross: Received in one container labeled Sana Diez, right breast mass biopsy is a 2.5 x 2.2 x 1.3-cm portion of fibroadipose tissue which is oriented with clips as stated on the requisition. The specimen is accompanied by a specimen radiograph interpreted as calcifications by Dr. Rony Fam. The margins are inked as follows: superior-yellow, inferior-green, medial-blue, and lateral-black. The specimen is serially sectioned from anterior to posterior to demonstrate dense fibrous tissue intermixed with adipose tissue. No discrete mass lesions are identified. The specimen is submitted entirely from anterior to posterior in blocks A1 through A5 with the anterior tip perpendicularly sectioned in block A1 and posterior tip perpendicularly sectioned in blocks A4 and A5. [facility] 11.12.2008 08:03 pm Microscopic: The slides are labeled [id number], Sana Diez. The breast is characterized by the presence of fibrocystic changes including cyst formation, stromal fibrosis, apocrine metaplasia, columnar cell change without atypia, and a small radial scar. Clustered coarse calcifications are associated with foci of columnar cell change in the anterior portion of the specimen. COMMENT: Certain proliferative lesions identified in breast biopsies are associated with an increased relative risk for the development of invasive carcinoma. According to data at this time, there is no increased relative risk (compared to the risk for women who have not had a breast biopsy) for patients whose biopsies contain: adenosis; duct ectasia; fibrosis; fibroadenoma (without complex features); mild hyperplasia without atypia; cysts; apocrine or squamous metaplasia. Reference: Arch Pathol Lab Med 1998;122:3488-0015 . WOLF/FREDY 11.15.2008 01:22 pm Staging Form: No. ELECTRONIC SIGNATURE FOR ZAFAR KRUGER M.D.- 11/15/08 01:34 pm INTERFACE SYSTEM 11/12/2008 11:1 4 AM CDT us Gena Tafoya MD PATHOLOGY/CYTOLOGY ORDERABLE S Final Result INTERFACE SYSTEM Refer to clinic/hospital department * MAMMO BREAST SPECIMEN RT (11/12/2008 10:32 AM CDT) Anatomical Region Laterality Modality Breast Right Other 11/12/2008 10:3 2 AM CDT Narrative 11/13/2008 8:30 AM CDT [facility] [address] [facility] [place], [place] [address] Admit Date: 11/12/2008 SANA DIEZ Sex: F Admit Prov: GENA TAFOYA Date: 1940 Primary Care Prov: MARTI VIVAS CMRN: [id number] Room: [facility] N: [id number] IMAGING SERVICES Ordering Prov: GENA TAFOYA Accession Number: [id number] Interpretation EXAM: RIGHT BREAST WIRE LOCALIZATION USING DIGITAL MAMMOGRAPHIC GUIDANCE AND SURGICAL SPECIMEN RADIOGRAPH DATE: 11/12/2008 HISTORY: The patient has questioned microcalcifications in the upper-outer quadrant of the right breast. This is a needle localization and excision for diagnosis. The patient did not feel she would be able to tolerate a stereotactic core biopsy. PROCEDURE AND FINDINGS: The procedure was discussed with the patient. After sterile preparation of the skin, the breast was placed in a compression grid, and 1% lidocaine was utilized for local anesthesia. A hookwire system was advanced to the area of interest in the breast from a lateral approach utilizing digital mammographic guidance. Orthogonal views were obtained to confirm appropriate needle/wire position. 0.2 cc of methylene blue dye was injected into the needle hub prior to the insertion of the wire. During the procedure, the patient had significant bleeding through the needle. Significant bruising of the right breast was identified after the procedure. The patient's physician, Dr. Gena Tafoya, was immediately contacted at 0940 hours. The patient's surgery was moved up. The patient tolerated the procedure well. Images were marked for the surgeon, and the patient was transferred to the operating suite for surgical excision. The surgical specimen was subsequently received from the operating room and digital radiography was performed. The specimen radiograph demonstrates multiple microcalcifications. The findings are communicated to the surgeon. IMPRESSION: Technically successful needle localization. Dictated by: MARCUS FAM Electronically signed by: MARCUS FAM 11/13/2008 08:29 Transcribed: 11/13/2008 08:04 DKT Procedure Note Marcus Fam - 11/13/2008 [facility] [address] [place], [place] [address] Admit Date: 11/12/2008 SANA DIEZ Sex: F Admit Prov: GENA TAFOYA Date: 1940 Primary Care Prov: MARTI VIVAS CMRN: [id number] Room: SURG-A SSN: [id number] IMAGING SERVICES Ordering Prov: GENA TAFOYA Interpretation EXAM: RIGHT BREAST WIRE LOCALIZATION USING DIGITAL MAMMOGRAPHICGUIDANCE AND SURGICAL SPECIMEN RADIOGRAPH DATE: 11/12/2008 HISTORY: The patient has questioned microcalcifications in theupper-outer quadrant of the right breast. This is a needle localization andexcision for diagnosis. The patient did not feel she would be able to toleratea stereotactic core biopsy. PROCEDURE AND FINDINGS: The procedure was discussed with the patient.After sterile preparation of the skin, the breast was placed in acompression grid, and 1% lidocaine was utilized for local anesthesia. A hookwiresystem was advanced to the area of interest in the breast from a lateralapproach utilizing digital mammographic guidance. Orthogonal views wereobtained to confirm appropriate needle/wire position. 0.2 cc of methylene bluedye was injected into the needle hub prior to the insertion of the wire.During the procedure, the patient had significant bleeding through the needle. Significant bruising of the right breast was identified after the procedure. The patient's physician, Dr. Gena Tafoya, wasimmediately contacted at 0940 hours. The patient's surgery was moved up. Thepatient tolerated the procedure well. Images were marked for the surgeon, and the patient was transferredto the operating suite for surgical excision. The surgical specimen was subsequently received from the operatingroom and digital radiography was performed. The specimen radiographdemonstrates multiple microcalcifications. The findings are communicated to thesuron. IMPRESSION: Technically successful needle localization. Dictated by: MARCUS FAM Electronically signed by: MARCUS FAM 11/13/2008 08:29 Transcribed: 11/13/2008 08:04 DKT Gena Tafoya MD MAMMO ORDERABLES Final Resul t * HEMOGLOBIN AND HEMATOCRIT (11/12/2008 9:20 AM CDT) HEMOGLOBIN 12.6 11.8 - 14.8 g/dL [facility] HEMATOCRIT 38.0 35.5 - 44.0 % [facility] Blood specimen (specimen) 11/12/2008 9:20 AM CDT 11/12/2008 9:30 AM CDT Narrative INTERFACE SYSTEM - 11/12/2008 9:41 AM CDT 27 us Gena Tafoya MD HEMATOLOGY ORDERABLES Final Result INTERFACE SYSTEM Refer to clinic/hospital department [facility] CLIA# [id number] [address] [place] [address] * (ABNORMAL) BASIC METABOLIC PANEL (11/12/2008 9:20 AM CDT) CALCIUM 9.7 8.6 - 10.2 mg/dL [facility] CO2 25 22 - 30 mmol/L [facility] CREATININE 0.96(H) 0.51 - 0.95 mg/dL [facility] POTASSIUM 4.3 3.5 - 4.9 mmol/L [facility] BUN 21(H) 6 - 20 mg/dL [facility] CHLORIDE 104 96 - 108 mmol/L [facility] GLUCOSE 83 65 - 99 mg/dL [facility] SODIUM 139 135 - 145 mmol/L [facility] GFR, >60 >=60 mL/min/1. 7 sq meter [facility] GFR 58(L) >=60 mL/min/1. 7 sq meter [facility] Comment: Modification of Diet in Renal Disease (MDRD) study formula. Estimated GFR rate interpretative information for both Americans and non- Americans is available on the [facility] Intranet at: [email or web address] Select: Lab Policies and Procedures Select: Reference Ranges - GFR Blood specimen (specimen) 11/12/2008 9:20 AM CDT 11/12/2008 9:30 AM CDT Gena Tafoya MD CHEMISTRY ORDERABLES Edited INTERFACE SYSTEM Refer to clinic/hospital department [facility] CLIA# [id number] [address] [place] [address] * XR CONSULTATION (11/12/2008 9:11 AM CDT) 11/12/2008 9:11 AM CDT Narrative INTERFACE SYSTEM - 11/15/2008 5:19 PM CDT [facility] [address] [place], [place] [address] Admit Date: 11/12/2008 SANA DIEZ Sex: F Admit Prov: GENA TAFOYA Date: 1940 Primary Care Prov: ORTEGA MARTI CMRN: [id number] Room: [facility] SSN: [id number] IMAGING SERVICES Ordering Prov: LISALENAGENA Accession Number: [id number] Addendum Addendum: The pathology from the patient's recent right breast needle localization revealed fibrocystic changes. These findings are benign and concordant. The patient will be informed of the above findings by Dr. Gena Tafoya. Dictated by: MARCUS FAM Electronically signed by: MARCUS FAM 11/15/2008 17:17 Transcribed: 11/15/2008 15:49 AMK Interpretation EXAM: RIGHT BREAST WIRE LOCALIZATION USING DIGITAL MAMMOGRAPHIC GUIDANCE AND SURGICAL SPECIMEN RADIOGRAPH DATE: 11/12/2008 HISTORY: The patient has questioned microcalcifications in the upper-outer quadrant of the right breast. This is a needle localization and excision for diagnosis. The patient did not feel she would be able to tolerate a stereotactic core biopsy. PROCEDURE AND FINDINGS: The procedure was discussed with the patient. After sterile preparation of the skin, the breast was placed in a compression grid, and 1% lidocaine was utilized for local anesthesia. A hookwire system was advanced to the area of interest in the breast from a lateral approach utilizing digital mammographic guidance. Orthogonal views were obtained to confirm appropriate needle/wire position. 0.2 cc of methylene blue dye was injected into the needle hub prior to the insertion of the wire. During the procedure, the patient had significant bleeding through the needle. Significant bruising of the right breast was identified after the procedure. The patient's physician, Dr. Gena Tafoya, was immediately contacted at 0940 hours. The patient's surgery was moved up. The patient tolerated the procedure well. Images were marked for the surgeon, and the patient was transferred to the operating suite for surgical excision. The surgical specimen was subsequently received from the operating room and digital radiography was performed. The specimen radiograph demonstrates multiple microcalcifications. The findings are communicated to the surgeon. IMPRESSION: Technically successful needle localization Report revised on 11/15/2008 5:17:45 PM by MARCUS FAM Dictated by: MARCUS FAM Electronically signed by: MARCUS FAM 11/13/2008 08:29 Transcribed: 11/13/2008 08:04 DKT Procedure Note Marcus Fam - 11/15/[address] [address] Admit Date: 11/12/2008 APARNA SANA J Sex: F Admit Prov: GENA TAFOYA Date: 1940 Primary Care Prov: MARTI VIVAS CMRN: [id number] Room: SURG-A SSN: [id number] IMAGING SERVICES Ordering Prov: GENA TAFOYA Addendum Addendum: The pathology from the patient's recent right breastneedle localization revealed fibrocystic changes. These findings are benignand concordant. The patient will be informed of the above findings byDr. Gena Tafoya. Dictated by: MARCUS FAM Electronically signed by: MARCUS FAM 11/15/2008 17:17 Transcribed: 11/15/2008 15:49 AMK Interpretation EXAM: RIGHT BREAST WIRE LOCALIZATION USING DIGITAL MAMMOGRAPHICGUIDANCE AND SURGICAL SPECIMEN RADIOGRAPH DATE: 11/12/2008 HISTORY: The patient has questioned microcalcifications in theupper-outer quadrant of the right breast. This is a needle localization andexcision for diagnosis. The patient did not feel she would be able to toleratea stereotactic core biopsy. PROCEDURE AND FINDINGS: The procedure was discussed with the patient.After sterile preparation of the skin, the breast was placed in acompression grid, and 1% lidocaine was utilized for local anesthesia. A hookwiresystem was advanced to the area of interest in the breast from a lateralapproach utilizing digital mammographic guidance. Orthogonal views wereobtained to confirm appropriate needle/wire position. 0.2 cc of methylene bluedye was injected into the needle hub prior to the insertion of the wire.During the procedure, the patient had significant bleeding through the needle. Significant bruising of the right breast was identified after the procedure. The patient's physician, Dr. Gena Tfaoya, wasimmediately contacted at 0940 hours. The patient's surgery was moved up. Thepatient tolerated the procedure well. Images were marked for the surgeon, and the patient was transferredto the operating suite for surgical excision. The surgical specimen was subsequently received from the operatingroom and digital radiography was performed. The specimen radiographdemonstrates multiple microcalcifications. The [facility] IMPRESSION: Technically successful needle localization Report revised on 11/15/2008 5:17:45 PM by MARCUS FAM Dictated by: MARCUS FAM Electronically signed by: MARCUS FAM 11/13/2008 08:29 Transcribed: 11/13/2008 08:04 DKT us Gena Tafoya MD DIAGNOSTIC IMAGING ORDERABLE S Edited INTERFACE SYSTEM Refer to clinic/hospital department * MAMMO NEEDLE LOC EA LESION RT (11/12/2008 9:11 AM CDT) Anatomical Region Laterality Modality Breast Right Other 11/12/2008 9:11 AM CDT Narrative 11/13/2008 8:30 AM CDT [place] [address] [place], [place] [address] Admit Date: 11/12/2008 SANA DIEZ Sex: F Admit Prov: GENA TAFOYA Date: 1940 Primary Care Prov: MARTI VIVAS CMRN: [id number] Room: SURG-A SSN: [id number] IMAGING SERVICES Ordering Prov: GENA TAFOYA Accession Number: [id number] Interpretation EXAM: RIGHT BREAST WIRE LOCALIZATION USING DIGITAL MAMMOGRAPHIC GUIDANCE AND SURGICAL SPECIMEN RADIOGRAPH DATE: 11/12/2008 HISTORY: The patient has questioned microcalcifications in the upper-outer quadrant of the right breast. This is a needle localization and excision for diagnosis. The patient did not feel she would be able to tolerate a stereotactic core biopsy. PROCEDURE AND FINDINGS: The procedure was discussed with the patient. After sterile preparation of the skin, the breast was placed in a compression grid, and 1% lidocaine was utilized for local anesthesia. A hookwire system was advanced to the area of interest in the breast from a lateral approach utilizing digital mammographic guidance. Orthogonal views were obtained to confirm appropriate needle/wire position. 0.2 cc of methylene blue dye was injected into the needle hub prior to the insertion of the wire. During the procedure, the patient had significant bleeding through the needle. Significant bruising of the right breast was identified after the procedure. The patient's physician, Dr. Gena Tafoya, was immediately contacted at 0940 hours. The patient's surgery was moved up. The patient tolerated the procedure well. Images were marked for the surgeon, and the patient was transferred to the operating suite for surgical excision. The surgical specimen was subsequently received from the operating room and digital radiography was performed. The specimen radiograph demonstrates multiple microcalcifications. The findings are communicated to the surgeon. IMPRESSION: Technically successful needle localization Assessment BIRADS: Post procedure mammograms for marker placement Recommendation: No recommendation required Dictated by: MARCUS FAM Electronically signed by: MARCUS FAM 11/13/2008 08:29 Transcribed: 11/13/2008 08:04 DK Procedure Note Marcus Fam - 11/13/2008 [facility] [address] [place], [place] [address] Admit Date: 11/12/2008 SANA DIEZ Sex: F Admit Prov: GENA TAFOYA Date: 1940 Primary Care Prov: MARTI VIVAS CMRN: [id number] Room: SURG-A SSN: [id number] IMAGING SERVICES Ordering Prov: GENA TAFOYA Interpretation EXAM: RIGHT BREAST WIRE LOCALIZATION USING DIGITAL MAMMOGRAPHICGUIDANCE AND SURGICAL SPECIMEN RADIOGRAPH DATE: 11/12/2008 HISTORY: The patient has questioned microcalcifications in theupper-outer quadrant of the right breast. This is a needle localization andexcision for diagnosis. The patient did not feel she would be able to toleratea stereotactic core biopsy. PROCEDURE AND FINDINGS: The procedure was discussed with the patient.After sterile preparation of the skin, the breast was placed in acompression grid, and 1% lidocaine was utilized for local anesthesia. A hookwiresystem was advanced to the area of interest in the breast from a lateralapproach utilizing digital mammographic guidance. Orthogonal views wereobtained to confirm appropriate needle/wire position. 0.2 cc of methylene bluedye was injected into the needle hub prior to the insertion of the wire.During the procedure, the patient had significant bleeding through the needle. Significant bruising of the right breast was identified after the procedure. The patient's physician, Dr. Gena Tafoya, wasimmediately contacted at 0940 hours. The patient's surgery was moved up. Thepatient tolerated the procedure well. Images were marked for the surgeon, and the patient was transferredto the operating suite for surgical excision. The surgical specimen was subsequently received from the operatingroom and digital radiography was performed. The specimen radiographdemonstrates multiple microcalcifications. [facility] IMPRESSION: Technically successful needle localization Assessment BIRADS: Post procedure mammograms for marker placement Recommendation: No recommendation required Dictated by: MARCUS FAM Electronically signed by: MARCUS FAM 11/13/2008 08:29 Transcribed: 11/13/2008 08:04 DKT Gena Tafoya MD MAMMO ORDERABLES Final Resul t * MAMMO DIGITAL DIAG UNI RIGHT (11/12/2008 9:11 AM CDT) Anatomical Region Laterality Modality Breast Right Other 11/12/2008 9:11 AM CDT Narrative 11/13/2008 8:30 AM CDT [facility] [address] [place], [place] [address] Admit Date: 11/12/2008 SANA DIEZ Sex: F Admit Prov: MICHELET GENA Date: 1940 Primary Care Prov: MARTI VIVAS CMRN: [id number] Room: SURG-A N: [id number] IMAGING SERVICES Ordering Prov: MICHELET GENA Accession Number: [id number] Interpretation EXAM: RIGHT BREAST WIRE LOCALIZATION USING DIGITAL MAMMOGRAPHIC GUIDANCE AND SURGICAL SPECIMEN RADIOGRAPH DATE: 11/12/2008 HISTORY: The patient has questioned microcalcifications in the upper-outer quadrant of the right breast. This is a needle localization and excision for diagnosis. The patient did not feel she would be able to tolerate a stereotactic core biopsy. PROCEDURE AND FINDINGS: The procedure was discussed with the patient. After sterile preparation of the skin, the breast was placed in a compression grid, and 1% lidocaine was utilized for local anesthesia. A hookwire system was advanced to the area of interest in the breast from a lateral approach utilizing digital mammographic guidance. Orthogonal views were obtained to confirm appropriate needle/wire position. 0.2 cc of methylene blue dye was injected into the needle hub prior to the insertion of the wire. During the procedure, the patient had significant bleeding through the needle. Significant bruising of the right breast was identified after the procedure. The patient's physician, Dr. Gena Tafoya, was immediately contacted at 0940 hours. The patient's surgery was moved up. The patient tolerated the procedure well. Images were marked for the surgeon, and the patient was transferred to the operating suite for surgical excision. The surgical specimen was subsequently received from the operating room and digital radiography was performed. The specimen radiograph demonstrates multiple microcalcifications. The findings are communicated to the surgeon. IMPRESSION: Technically successful needle localization Assessment BIRADS: Post procedure mammograms for marker placement Recommendation: No recommendation required Dictated by: MARCUS FAM Electronically signed by: MARCUS FAM 11/13/2008 08:29 Transcribed: 11/13/2008 08:04 DKT Procedure Note Marcus Fam - 11/13/2008 [facility] [address] [place], [place] [address] Admit Date: 11/12/2008 SANA DIEZ Sex: F Admit Prov: LISALENA GENA Date: 1940 Primary Care Prov: MARTI VIVAS CMRN: [id number] Room: SURG-A SSN: [id number] IMAGING SERVICES Ordering Prov: MICHELET GENA Interpretation EXAM: RIGHT BREAST WIRE LOCALIZATION USING DIGITAL MAMMOGRAPHICGUIDANCE AND SURGICAL SPECIMEN RADIOGRAPH DATE: 11/12/2008 HISTORY: The patient has questioned microcalcifications in theupper-outer quadrant of the right breast. This is a needle localization andexcision for diagnosis. The patient did not feel she would be able to toleratea stereotactic core biopsy. PROCEDURE AND FINDINGS: The procedure was discussed with the patient.After sterile preparation of the skin, the breast was placed in acompression grid, and 1% lidocaine was utilized for local anesthesia. A hookwiresystem was advanced to the area of interest in the breast from a lateralapproach utilizing digital mammographic guidance. Orthogonal views wereobtained to confirm appropriate needle/wire position. 0.2 cc of methylene bluedye was injected into the needle hub prior to the insertion of the wire.During the procedure, the patient had significant bleeding through the needle. Significant bruising of the right breast was identified after the procedure. The patient's physician, Dr. Gena Tafoya, wasimmediately contacted at 0940 hours. The patient's surgery was moved up. Thepatient tolerated the procedure well. Images were marked for the surgeon, and the patient was transferredto the operating suite for surgical excision. The surgical specimen was subsequently received from the operatingroom and digital radiography was performed. The specimen radiographdemonstrates multiple microcalcifications. [facility] IMPRESSION: Technically successful needle localization Assessment BIRADS: Post procedure mammograms for marker placement Recommendation: No recommendation required Dictated by: MARCUS FAM Electronically signed by: MACRUS FAM 11/13/2008 08:29 Transcribed: 11/13/2008 08:04 DKT us Gena Tafoya MD MAMMO ORDERABLES Final Resul t documented in this encounter Visit Diagnoses Diagnosis Lump or mass in breast Diffuse cystic mastopathy Sleep disturbance, unspecified Depressive disorder, not elsewhere classified Encounter for long-term (current) use of aspirin Encounter for long-term (current) use of other medications documented in this encounter Care Teams Nocturnist Relationship Specialty Start Date End Date Bakari Colorado MD [address] [place] [id number] PCP - General Internal Medicine 09/30/22 documented as of this encounter
--- OUTSIDE RECORDS SUMMARY | 2025-07-23 01:09 | XMS_ITS | Encounter Summary ---
Author Organization [facility] Address [address] [place] [address] Care Team Providers Care Oncology Nurse Navigator Name Role Phone Bakari Colorado MD Primary Care Provider [phone] Encounter Details Date Type Department Care Team (Late st Contact Info) Description 11/04/2008 Outpatient Historical 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 [place] [address] Wilbur Dorman MD [address] [place] [address] 05/08/2026 10:15 AM CDT Office Visit [facility] Oncology and Hemat[facility] [address] [place] [address] Amina Williamson MD [address] [place] [address] documented as of this encounter Procedures Procedure Name Priority Date/Time Associated Diagnosis Comments MAMMO DIAGNOSTIC UNI RIGHT W OR WO CAD Routine 11/04/2008 1:10 PM CDT documented in this encounter Results * MAMMO DIGITAL DIAG UNI RIGHT (11/04/2008 1:10 PM CDT) Anatomical Region Laterality Modality Breast Right Other 11/04/2008 1:10 PM CDT Narrative 11/06/2008 4:19 AM CDT [facility] [address] [place], [place] [address] Admit Date: 11/04/2008 SANA DIEZ Sex: F Admit Prov: GENA TAFOYA Date: 1940 Primary Care Prov: MARTI VIVAS CMRN: [id number] Room: [facility] SSN: [id number] IMAGING SERVICES Ordering Prov: GENA TAFOYA Accession Number: [id number] Interpretation RIGHT BREAST FULL FIELD DIGITAL DIAGNOSTIC MAMMOGRAM WITH COMPUTER AIDED DETECTION, 11/04/2008 HISTORY: The patient had a previous mammogram performed at [facility] dated September 2008. This demonstrated clustered microcalcifications in the right breast. Stereotactic core biopsy was recommended. The patient was sent here for additional evaluation. TECHNIQUE: A right breast full field digital diagnostic mammogram was performed. CAD was utilized. Comparison is made with the patient's previous studies from the outside institution dated September 2008. BREAST COMPOSITION: Scattered fibroglandular densities. FINDINGS: Diffusely scattered microcalcifications are identified within the right breast. The patient does have a single cluster of more tightly clustered microcalcifications in the upper-outer quadrant of the right breast. Given the lack of previous films for comparison, a biopsy is certainly a reasonable next step. This patient's breast is at the lower limits of acceptability for a stereotactic core biopsy. Therefore, the patient was placed on the stereotactic core biopsy table. Although the calcifications would be amenable to a stereotactic core biopsy, the patient feels as though she would not be able to tolerate this procedure. Therefore, a needle localization and excision is recommended. The CAD system detects no other significant abnormalities. Overall Assessment: BI-RADS Category: 4a. Suspicious findings, low suspicion. RECOMMENDATION: It is recommended the patient have a needle localization and excision of the clustered microcalcifications in the upper-outer quadrant of the right breast. The patient does not feel she will be able to tolerate a stereotactic core biopsy. Assessment BIRADS: 4A-Suspicious abnormality, biopsy should be considered- Low suspicion Recommendation: Needle localization and biopsy Dictated by: BÁRBARA FAM Electronically signed by: BÁRBARA FAM 11/06/2008 04:19 Transcribed: 11/05/2008 07:50 DKT Procedure Note Bárbara Fam - 11/06/2008 [facility] [address] [place], [place] [address] Admit Date: 11/04/2008 APARNA SANA J Sex: F Admit Prov: GENA TAFOYA Date: 1940 Primary Care Prov: MARTI VIVAS CMRN: [id number] Room: [facility] SSN: [id number] IMAGING SERVICES Ordering Prov: GENA TAFOYA Interpretation RIGHT BREAST FULL FIELD DIGITAL DIAGNOSTIC MAMMOGRAM WITH COMPUTERAIDED DETECTION, 11/04/2008 HISTORY: The patient had a previous mammogram performed at [facility] dated September 2008. This demonstrated clusteredmicrocalcifications in the right breast. Stereotactic core biopsy was recommended. Thepatient was sent here for additional evaluation. TECHNIQUE: A right breast full field digital diagnostic mammogramwas performed. CAD was utilized. Comparison is made with the patient'sprevious studies from the outside institution dated September 2008. BREAST COMPOSITION: Scattered fibroglandular densities. FINDINGS: Diffusely scattered microcalcifications are identifiedwithin the right breast. The patient does have a single cluster of moretightly clustered microcalcifications in the upper-outer quadrant of theright breast. Given the lack of previous films for comparison, a biopsyis certainly a reasonable next step. This patient's breast is at thelower limits of acceptability for a stereotactic core biopsy. Therefore,the patient was placed on the stereotactic core biopsy table. Althoughthe calcifications would be amenable to a stereotactic core biopsy, thepatient feels as though she would not be able to tolerate this procedure. Therefore, a needle localization and excision is recommended. TheCAD system detects no other significant abnormalities. Overall Assessment: BI-RADS Category: 4a. Suspicious findings, low suspicion. RECOMMENDATION: It is recommended the patient have a needlelocalization and excision of the clustered microcalcifications in theupper-outer quadrant of the right breast. The patient does not feel she will beable to tolerate a stereotactic core biopsy. Assessment BIRADS: 4A-Suspicious abnormality, biopsy should beconsidered- Low suspicion Recommendation: Needle localization and biopsy Dictated by: BÁRBARA FAM Electronically signed by: BÁRBARA FAM 11/06/2008 04:19 Transcribed: 11/05/2008 07:50 DKT us Gena Tafoya MD MAMMO ORDERABLES Final Resul t documented in this encounter Visit Diagnoses Diagnosis Lump or mass in breast documented in this encounter Care Teams Oncology Nurse Navigator Relationship Specialty Start Date End Date Bakari Colorado MD [facility] [place] [id number] PCP - General Internal Medicine 09/30/22 documented as of this encounter
--- OUTSIDE RECORDS SUMMARY | 2025-07-23 01:09 | XMS_ITS | Patient Health Record ---
Author Organization [facility] Address [address] [facility]. [address] [place] [address] Care Team Providers Care Leak Patcher Name Role Phone Bakari Colorado MD Primary Care Provider Unaafrica angelinaMarcelo Gallegos Unavailable [phone] Allergies Allergen (clinical drug ingredient) Drug/Non Drug Allergy documented on EMR Reaction Allergy Type Onset Date Status Lactose Unknown Drug Allergy Active Reason For Referral No Information Medications Medication SIG (Take, Route, Frequency, Duration) Notes Start Date End Date Status Erythromycin 50 MG 1 by mouth at bedtime; Duration: days 05/24/2022 Active Atrantil - 2 tablets PO TID; Duration: 05/24/2022 Active Neomycin Sulfate 500 MG 1 tablet Orally twice daily; Duration: 05/24/2022 Active Neomycin Sulfate 500 MG 1 tablets Orally BID; Duration: 10 06/17/2021 Active Pantoprazole Sodium 40 MG 1 tablet Orally Once a day; Duration: 30 day(s) 09/03/2020 Active Atorvastatin Calcium Active Famotidine 40 MG Orally Act linh DULoxetine HCl Activ e Pantoprazole Sodium 40 MG 1 tablet Orally Once a day; Duration: 90 days 09/03/2020 Active Atrantil - 2 tablets PO TID; Duration: days 06/17/2021 Active Erythromycin 50 MG 1 by mouth at bedtime; Duration: 90 days 06/17/2021 Active Neomycin Sulfate 500 MG 1 tablets Orally Twice a Day; Duration: 10 days 06/17/2021 Active Erythromycin 50 MG 1 by mouth at bedtime; Duration: 90 days 06/17/2021 Active Nystatin 373777 UNIT/ML 4 ml Mouth/Throat Four times a day; Duration: 30 day(s) Active traZODone HCl Active OTC/Vitamins ASA, Magnesium, Potassium, Calcium Active Immunizations Vaccine Route Administration Date Status Comme nts Influenza Vaccination Unknown 04/24/2018 Administered Social History Tobacco Use: Social History Observation Description Date Details (start date - stop date) Never Smoker NA - NA Tobacco Use/Smoking Question Answer Notes Are you a nonsmoker Problems Problem Type SNOMED Code ICD Code Onset Dates Problem Status W/U Status Risk Notes Problem Heartburn (12539859) Heartburn (R12) Active confirmed She has experienced increased symptoms over the past 13 days. It appears that she had thrush (due to recent antibiotic use) which has improved with nystatin therefore suspect esophageal candidiasis. Other considerations include GERD. Problem Family history of polyp of colon (293004049) Family history of colonic polyps (Z83.71) Active confirmed She has a famil y history of colon polyps in her father. Problem Diarrhea (97606858) Diarrhea (R19.7) Active confirmed She has been experiencing explosive diarrhea for one month. She also has associated urgency and goes up to 8 times a day. She has no other alarm features. Though she has been treated for colitis and SIBO in the past, her current symptoms feel different. Her last colonoscopy was in 2017 where biopsies were negative for microscopic colitis. She has not had any recent blood work or imaging. Differential diagnosis includes C. Diff, microscopic colitis, IBD, parasitic infection, infectious process, SIBO, food intolerance or others. Cannot rule out a functional disorder at this time Problem Weight loss (904122266) Weight loss (R63.4) Active confirmed She has lost 6 pounds since the onset of symptoms as food does not taste good. Problem Flatulence, eructation and gas pain (776397143) Bloating (R14.0) Active confirmed Problem History of polyp of colon (situation) (929609247) History of colon polyps (Z86.010) Active confirmed Her last colonoscopy in 2019 revealed no polyps. She was not instructed to follow-up for repeat surveillance on colonoscopy given her age and current guidelines. Problem Constipation (66311212) Constipation, unspecified constipation type (K59.00) Active confirmed Increased constipation of recent as she has lost her appetite. Suspect the constipation is secondary to the reduced food intake. She is up-to-date with colonoscopy as her last procedure took place in March 2019. No polyps were found. Problem Abdominal pain (93038747) Abdominal cramping (R10.9) Active confirmed Problem Intolerance to lactose (finding) (109973563) Lactose intolerance (E73.9) Active confirmed Problem Fatigue (88089383) Fatigue (R53.83) Active confirmed She has been feeling extremely fatigued of the last few weeks. Problem Acid reflux (764576360) Acid reflux (K21.9) Active confirmed She has been experiencing reflux symptoms despite taking ranitidine 300 mg at night. Plan Of Treatment Pending Test Test Name Order Date CLOSTRIDIUM DIFFICILE TOXINB,QL REAL GLORIA E PCR 03/20/2019 Initiate SIBO 06/23/2018 Insurance Providers Payer Name Payer Address Payer Phone Subscriber Number Group Number Insured Name Patient Relationship to Insured Coverage Start Date Coverage End Date [employer] Medicare Ppo E2 [address] [place] [phone] [id number] Sana Escobedo Self - patient is the insured Medical (General) History Medical History History ICD Code Colon Polyps Diverticulosis GERD History of SIBO Lactose Intolerance Hearing Loss Breast Cancer Surgical History Surgery Date(Month/Year) Colonoscopy 03/2019 EGD 2012 Carpal tunnel Lumpectomy Hand Surgery
--- OUTSIDE RECORDS SUMMARY | 2025-07-23 01:09 | XMS_ITS ---
Author Organization [facility] Address [address] [place] [address] Care Team Providers Care Registered Dietetic Technician Name Role Phone Bakari Colorado MD Primary Care Provider + Active Problems Problem Noted Date Diagnosed Date Encounter for screening colonoscopy 09/21/2024 History of colonic polyps 09/21/2024 Abnormal urinalysis 08/25/2023 Arthritis 08/25/2023 Overview (08/25/2023): Phreesia 01/03/2023 Dysuria 08/25/2023 Hesitancy 08/25/2023 Microscopic hematuria 08/25/2023 Midline cystocele 08/25/2023 Overactive bladder 08/25/2023 Urge incontinence 08/25/2023 Incomplete uterovaginal prolapse 05/20/2023 Urine, incontinence, stress female 05/20/2023 Age-related osteoporosis wit hout current pathological fracture 02/10/2021 Degenerative lumbar spinal stenosis 08/06/2020 DDD (degenerative disc disease), lumbar 08/06/19 Lumbar radiculopathy 08/06/2020 Sacroiliitis 08/06/2020 Microscopic colitis 05/03/2019 History of breast cancer 05/03/2019 Lipoma of torso 12/14/2018 Overview (12/14/2018): Added automatically from request for surgery [id number] Assessment & Plan (12/19/2018 10:05 AM CDT): The procedure of excision along with risks, benefits, and post operative period, along with seroma, were discussed with the patient. She wishes for local anesthesia only, will have in minor room. 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 Diffuse moderately erythematous mucosa with no bleeding in stomach. Biopsied. Multiple small sessile gastric polyps in the fundus. Biopsied. Normal duodenum. Biopsied. PATH: Mild chronic gastritis, neg for h.pylori. Fundic gland polyp. Normal duodenal villous architecture, no increase in lymphocytes. 02/2013: Colonoscopy: Good prep. Diverticulosis in sigmoid colon and in descending colon. Diminutive sigmoid polyp. Internal hemorrhoids. Random biopsies. PATH: Normal colonic mucosa, no active or microscopic colitis. Sigmoid polyp: Polypoid colon mucosa with lymphoid aggregates. No adenomatous changes 11/2011: CT abd/pelvis with contrast: Old healed granulomatous disease. Diverticulosis with retained fecal material throughout colon. Lumbar spondylosis. No mass seen in liver or spleen. Pancreas and gallbladder within normal limits. No retroperitoneal mass or aneurysm. TTG IgA: 5 (Negative), Antigliadin IgA 4 (negative) Overview: 02/2013: EGD: Small hiatal hernia. Diffuse moderately erythematous mucosa with no bleeding in stomach. Biopsied. Multiple small sessile gastric polyps in the fundus. Biopsied. Normal duodenum. Biopsied. PATH: Mild chronic gastritis, neg for h.pylori. Fundic gland polyp. Normal duodenal villous architecture, no increase in lymphocytes. 02/2013: Colonoscopy: Good prep. Diverticulosis in sigmoid colon and in descending colon. Diminutive sigmoid polyp. Internal hemorrhoids. Random biopsies. PATH: Normal colonic mucosa, no active or microscopic colitis. Sigmoid polyp: Polypoid colon mucosa with lymphoid aggregates. No adenomatous changes 11/2011: CT abd/pelvis with contrast: Old healed granulomatous disease. Diverticulosis with retained fecal material throughout colon. Lumbar spondylosis. No mass seen in liver or spleen. Pancreas and gallbladder within normal limits. No retroperitoneal mass or aneurysm. TTG IgA: 5 (Negative), Antigliadin IgA 4 (negative) Phreesia 01/03/2023 Current Treatment and Therapy Plans No current plan information found. Past Treatment and Therapy Plans No past plan information found. 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
--- OUTSIDE RECORDS SUMMARY | 2025-07-23 01:09 | XMS_ITS | Clinical Summary ---
Author Organization [facility] Address [address] [place] [address] Phone Care Team Providers Care Bike Designer Name Role Phone Terry Valle MD Primary Care Provider [phone] Terry Mcdaniel MD Unavailable [phone] Amina Williamson MD Unavailable [phone] Tasia Lyles Unavailable Allergies No known active allergies Medications clonazePAM (KLONOPIN) 0.5 MG Tablet Take 0.5 mg by mouth Daily as needed. Active vitamin B complex (DEXFOL) Tablet Take 1 Tab by mouth daily. Active Dexlansoprazole 60 MG CAPSULE DELAYED RELEASE Take by mouth daily. Active DULoxetine (CYMBALTA) [address] Particles Take 60 mg by mouth daily. Active traZODone (DESYREL) 50 MG TabletIndicatio ns:total dose 75mg at bedtime Take 50 mg by mouth nightly. Indications: total dose 75mg at bedtime Active fish oil-omega-3 fatty acids 1000 MG Capsule Take 1,000 mg by mouth daily. Active Multiple Vitamins-Minera ls (CENTRUM SILVER PO) Take by mouth daily. Active Active Problems Problem Noted Date Diagnosed Date History of ductal carcinoma in situ (DCIS) of br east 04/25/2019 Overview (04/25/2019): Stage 0, DCIS histology, left breast cancer. She had breast conservation surgery and completed left breast radiotherapy 01/06/2016. She was then placed on Arimidex. Because of extreme fatigue which she associated with the Arimidex, she discontinued Arimidex after several weeks. History of therapeutic radiation 10/12/2016 Overview (07/13/2017): Completed left breast radiotherapy 01/06/2016. Resolved Problems Problem Noted Date Diagnosed Date Resolved Date History of partial mastectomy of left breast 7 04/25/2019 Overview (07/13/2017): 10/29/2015 History of left breast cancer 02/11/2016 04/25/2019 Overview (07/13/2017): Stage 0, DCIS histology, left breast cancer. She had breast conservation surgery and completed left breast radiotherapy 01/06/2016. She was then placed on Arimidex. Because of extreme fatigue which she associated with the Arimidex, she discontinued Arimidex after several weeks. 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 11/27/2015 02/11/2016 Cancer Staging:Clinical stage from 11/27/2015:Stage 0(Tis (DCIS), N0, cM0, Free text: ER/[place] positive) - Signed by Terry Mcdaniel MD on 11/27/2015 Pathologic:Stage 0(Tis (DCIS), NX, cM0, Free text: ER/[place] positive) - Signed by Terry Mcdaniel MD on 11/27/2015 Immunizations Immunization Administration Dates Next Due Covid-19, Mrna, Lnp-s, PF, 1 00 mcg/0.5 mL Dose (Moderna) 10/07/2020,08/27/2020 Family History Medical History Relation Name Comments No Known Problems Father Lung Cancer Maternal Aunt Stroke Mother Relation Name Status Comments Father Maternal Aunt Mother Alive Sister Alive Social History Tobacco Use Types Packs/Day Years Used Date Smoking Tobacco: Former Cigarettes 0.3 5 0 07/29/1959 - 07/29/1964 Smokeless Tobacco: Never Alcohol Use Standard Drinks/Week Comments Yes 3 (1 standard drink = 0.6 oz pur e alcohol) A few drinks a week. Sexually Active Control Partners Comments Never Comments No Sex and Gender Information Value Date Recorded Sex Assigned at Not on file Legal Sex Female 8:03 PM CDT Gender Identity Not on file Sexual Orientation Not on file Last Filed Vital Signs Vital Sign Reading Time Taken Comments Blood Pressure 117/72 04/25/2019 3:04 PM CDT Pulse 75 04/25/2019 3:04 PM CDT Temperature 36.8 C (98.3 F) 04/25/2019 3:04 PM CDT Respiratory Rate 16 04/25/2019 3:04 PM CDT Oxygen Saturation 95% 04/25/2019 3:04 PM CDT Inhaled Oxygen Concentration - - Weight 54.9 kg (121 lb) 04/25/2019 3:04 PM CDT Height 157.5 cm (5' 2) 04/25/2019 3:04 PM CDT Body Mass Index 22.13 04/25/2019 3:04 PM CDT Plan of Treatment Health Maintenance Due Date Last Done Comments Hepatitis C Virus (HCV) Screening 1940 TdaP Immunization 1940 Medicare Initial AWV [id number] 08/25/2014 Respiratory Syncytial Virus (RSV) Immunization (Adult) (1 - 1-dose 75+ series) 2016 Mammogram 06/02/2023 06/02/2022, 04/24, 05/02/2018, Additional history exists DEXA Bone Density 03/12/2024 03/12/2022, 02/10/2021 Influenza Immunization (#1) 03/25/202505/26, 04/06/2021, 05/19/2020, Additional history exists SARS-COV-2 Immunization (2024- season) 2025 12/14/2021, 06/10/2021, 10/07/2020, Additional history exists DTaP/Tdap/Td Immunization Discontinued 10/03/2007 Zoster Immunization Completed 04/16/2019, 12/19/2018, 11/22/2008 Pneumococcal Immunization (50+ years) Completed 05/20/2020, 11/29/2012, 10/03/2007 Pneumococcal Immunization Combined Discontinued 05/20/2020, 11/29/2012, 10/03/2007 Hepatitis B Immunization Aged Out No longer eligible based on patient's age to complete this topic Human Papillomavirus (HPV) Immunization (No Doses Required) Completed Meningococcal Immunization (ACWY) Aged Out No longer eligible based on patient's age to complete this topic Rotavirus Immunization Aged Out No lo nger eligible based on patient's age to complete this topic Procedures Procedure Name Priority Date/Time Associated Diagnosis Comments HERMAN MRI BREAST W/WO CONTRAST,BILATERAL Routine 10/14/2015 from Last 3 Months or Most Recently Relevant to Health Maintenance Results * HERMAN MRI BREAST W/WO CONTRAST,BILATERAL (10/14/2015) Anatomical Region Laterality Modality breast Bilateral Other us Historical Provider MD VIDAL MR ORDERABLES Final R esult from Last 3 Months or Most Recently Relevant to Health Maintenance Insurance MEDICARE C [employer]ET[employer] Care Teams Bike Designer Relationship Specialty Start Date End Date Terry Valle MD [address] [place] [address] [address] [place] [address] PCP - General Internal Medicine 11/26/15 Terry Mcdaniel MD [address] [place] [address] [address] [place] [address] Consulting Physician Radiation Oncology 11/27/15 Amina Williamson MD [address] [facility] [address] [place] [address] Consulting Physician Oncology 11/27/15 Tasia Lyles [address] [facility] [address] [place] [address] Consulting Physician General Surgery 11/27/15
--- OUTSIDE RECORDS SUMMARY | 2025-07-23 01:09 | XMS_ITS | Clinical Summary ---
Author Organization [facility] Address [address] [place] [address] Care Team Providers Care Party Host Name Role Phone Terry Valle MD Primary Care Provider Unavail able Source Comments [facility],non-owned Affiliates and Associated Physician Practices is amultiple site organization consisting of ambulatory clinics and hospital sitesin [place], [place], [place] and [place]. This disclosure is being madepursuant to the Care Everywhere program and may not contain all information available regarding this patient. Last updated 18.[facility] Shopping Buddy Active Problems Problem Noted Date Diagnosed Date Irritable bowel syndrome without diarrhea 2013 Overview (10/24/2017): 02/2013: EGD: Small hiatal hernia. Diffuse moderately [...] IgA: 5 (Negative), Antigliadin IgA 4 (negative) Family History Medical History Relation Name Comments Dementia Father Status: d Other Father IBS Arthritis Mother Status: Alive Relation Name Status Comments Father Mother Social History Tobacco Use Types Packs/Day Years Used Date Smoking Tobacco: Never Smokeless Tobacco: Never Alcohol Use Standard Drinks/Week Comments Yes 0 (1 standard drink = 0.6 oz pur e alcohol) Comments Unknown Sex and Gender Information Value Date Recorded Sex Assigned at Not on file Legal Sex Female 6:28 PM SAND MIXER Gender Identity Not on file Sexual Orientation Not on file Last Filed Vital Signs Vital Sign Reading Time Taken Comments Blood Pressure 105/60 10/24/2013 11:17 AM CDT Pulse 60 10/24/2013 11:17 AM CDT Temperature 36.6 C (97.8 F) 10/24/2013 11:17 AM CDT Respiratory Rate 18 10/24/2013 11:17 AM CDT Oxygen Saturation - - Inhaled Oxygen Concentration - - Weight 57.8 kg (127 lb 6.4 oz) 10/24/2013 11:17 AM CDT Height 158.8 cm (5' 2.5) 10/24/2013 11:17 AM CD T Body Mass Index 22.93 10/24/2013 11:17 AM CDT Plan of Treatment Health Maintenance Due Date Last Done Comments BONE DENSITY TESTING 1940 DTAP/TDAP/TD VACCINES (1 - Tdap) 1960 PNEUMOCOCCAL VACCINE 50+ (1 of 1 - PCV) 1991 ZOSTER VACCINE (1 of 2) 1991 Respiratory Syncytial Virus (RSV) Vaccine Pt: or over 60 yrs (1 - 1-dose 75+ series) 2016 DEPRESSION SCREENING 07/25/2024 COVID-19 VACCINE (1 - 2024-2 6 season) 2025 INFLUENZA VACCINE (#1) 2025 HEPATITIS B VACCINE Aged Out No longe r eligible based on patient's age to complete this topic HIB VACCINE Aged Out No longer eligi ble based on patient's age to complete this topic HPV VACCINE Aged Out No longer eligi ble based on patient's age to complete this topic MENINGOCOCCAL (Group B) VACC INE SHARED DECISION-MAKING Aged Out No longer eligibl e based on patient's age to complete this topic MENINGOCOCCAL GROUPS A/C/Y/W VACCINE Aged Out No longer eligible b ased on patient's age to complete this topic Care Teams Party Host Relationship Specialty Start Date End Date Terry Valle MD PCP - General 10/24/13
--- OUTSIDE RECORDS SUMMARY | 2025-07-23 01:09 | XMS_ITS | Clinical Summary ---
Author Organization [facility] Address [address] [place] [address] Care Team Providers Care Board Certified Family Physician Name Role Phone Bakari Colorado MD Primary Care Provider + Allergies No known active allergies Medications potassium 99 mg tablet Take by mouth daily Active magnesium gluconate 200 mg tabletIndicatio ns:hypomagnesem ia Take 1 tablet (200 mg total) by mouth daily Active traZODone (DESYREL) 50 mg tablet Take 1 tablet (50 mg total) by mouth nightly Active clonazePAM (KlonoPIN) 0.5 mg tablet Take 1 tablet (0.5 mg total) by mouth daily as needed [address] (PROTONIX) 40 mg EC tablet Take 1 tablet (40 mg total) by mouth daily 90 tablet 3 1 Active famotidine (PEPCID) 40 mg tablet Take 1 tablet (40 mg total) by mouth daily 90 tablet 3 2 Active Additional Information Patient not taking.Reported on 08/25/2023 vibegron (Gemtesa) 75 mg tablet Take 75 mg by mouth daily Active DULoxetine DR (CYMBALTA) 60 mg capsule Take 1 capsule (60 mg total) by mouth daily Active gabapentin (NEURONTIN) 100 mg capsule Take 1 capsule (100 mg total) by mouth nightly Active atorvastatin (LIPITOR) 10 mg tablet Take 1 tablet (10 mg total) by mouth daily Active HYDROcodone-maryam taminophen (NORCO) 5-325 mg per tabletIndicatio ns:Pain Take 1-2 tablets by mouth every 4 (four) hours as needed for pain for up to 30 doses 20 tablet 3 Active Additional Information Patient not taking.Reported on 08/25/2023 docusate sodium (COLACE) 100 mg capsuleIndicati ons:constipatio n Take 1 capsule (100 mg total) by mouth 2 (two) times a day For constipation. 60 capsule 3 Active Active Problems Problem Noted Date Diagnosed [...] (12/14/2018): Added automatically from request for surgery [id number] Assessment & Plan (12/19/2018 10:05 AM CDT): [...] (Negative), Antigliadin IgA 4 (negative) Phreesia 01/03/2023 Resolved Problems Problem Noted Date Diagnosed Date Resolved Date Low back pain with sciatica 08/06/2020 05/22/2021 Medicare annual wellness visit, subsequent 03/21/2017 06/28/2017 Multiple-type hyperlipidemia 12/08/2013 06/29/2017 Overview (10/28/2016): MIXED HYPERLIPIDEMIA Encounters Date Type Department Care Team Description 04/24/2025 Telephone [facility] at [address] [place] [address] Suly Jarrett Colonoscopy No Show from Last 3 Months Immunizations Immunization Administration Dates Next Due Influenza, Quadrivalent, Hig h Dose, Preservative Free, Intrr 06/15/2023,05/19/2020 Influenza, Quadrivalent, Spl it, Preservative Free, Intramuscular 08/04/2016 Influenza, Split 04/17/2012,06/25/2010 Influenza, Trivalent, High D ose, Split, Preservative Free, Intramuscular 05/03/2019,04/04/2018,06/21/2017 Influenza, Trivalent, IM (MDV) 3,05/12/2011,04/24/2009,09/05 Influenza, Unspecified 04/06/2021,2019,03/07/2019(Defer red: Patient Refused) Pneumococcal Conjugate PCV 13 11/29/2012 Pneumococcal Polysaccharide PPV23 05/20/2020,05/2008 Td, adsorbed 10/03/2007 ZOSTER LIVE 11/22/2008 ZOSTER Recombinant 04/16/2019,12/19/2018 Surgical History Surgery Date Site/Laterality Comments CARPAL TUNNEL RELEASE Carpal tunnel release BREAST LUMPECTOMY Left lumpectomy TONSILLECTOMY COLONOSCOPY ESOPHAGOGASTRODUODENOSCOPY PUBOVAGINAL SLING MASTECTOMY PARTIAL / LUMPECTOMY LIPOMA RESECTION Medical History Medical History Date Comments Osteoporosis Osteoporosis Breast cancer (HCC) HLD (hyperlipidemia) DJD (degenerative joint disease) GERD (gastroesophageal reflux disease) Microscopic colitis Adenomatous colon polyp HSV-2 (herpes simplex virus 2) infection DDD (degenerative disc disease), lumbar Spinal stenosis, lumbar YAMILKA (generalized anxiety disorder) IBS (irritable bowel syndrome) MDD (major depressive disorder) Family History Medical History Relation Name Comments Other Father 2 Alive and well; Other Mother 2 Alive and well; Relation Name Status Comments Father 1 Alive Father 2 Mother 1 Alive Mother 2 Social History Tobacco Use Types Packs/Day Years Used Date Smoking Tobacco: Never Smokeless Tobacco: Never Tobacco Cessation:Counseling Given: Not Answered Alcohol Use Standard Drinks/Week Comments Yes 0 (1 standard drink = 0.6 oz pur e alcohol) AUDIT-C Answer Date Recorded Q1: How often do you have a drink containing alc ohol? 2-4 times a month 06/14/2023 Q2: How many drinks containi ng alcohol do you have on a typical day when you are drinking? 1 or 2 06/14/2023 Q3: How often do you have si x or more drinks on one occasion? Never 06/14/2023 PHQ-2 Answer Date Recorded PHQ-2 Total Score (If total score is 3 or more points, staff should administer the PHQ-9) 0 05/21/2021 Personal Safety Answer Date Recorded Have you ever been in or are you currently in a harmful physical or emotional relationship or is someone making you feel afraid or unsafe? Denies 06/14/2023 Comments No Sex and Gender Information Value Date Recorded Sex Assigned at Not on file Legal Sex Female 5:40 PM MEDICAL RADIATION THERAPIST Gender Identity Not on file Sexual Orientation Not on file Last Filed Vital Signs Vital Sign Reading Time Taken Comments Blood Pressure 100/51 06/15/2023 11:48 AM MEDICAL RADIATION THERAPIST Pulse 60 06/15/2023 11:48 AM MEDICAL RADIATION THERAPIST Temperature 36.7 C (98 F) 06/15/2023 11:48 AM MEDICAL RADIATION THERAPIST Respiratory Rate 15 06/15/2023 11:48 AM MEDICAL RADIATION THERAPIST Oxygen Saturation 95% 06/15/2023 11:48 AM MEDICAL RADIATION THERAPIST Inhaled Oxygen Concentration - - Weight 57.2 kg (126 lb 1.7 oz) 06/14/2023 6:49 A M MEDICAL RADIATION THERAPIST Height 157.5 cm (5' 2) 06/14/2023 6:49 AM MEDICAL RADIATION THERAPIST Body Mass Index 23.06 06/14/2023 6:49 AM MEDICAL RADIATION THERAPIST Plan of Treatment Health Maintenance Due Date Last Done Comments Hepatitis B Screening 1958 DTaP/Tdap/Td Vaccine (1 - Tdap) 10/04/2007 8 Breast Cancer Screening-Mammogram 05/13/2021 05/13/2020, 05/11/2019, 05/02/2018, Additional history exists Depression Screening 05/21/2022 05/21/2021, 01/22/2021, 09/16/2020, Additional history exists Well Visit 65+ 05/21/2022 05/21/2021, 04/25, 05/03/2019, Additional history exists Osteoporosis Screening-Bone Density Scan 03/12/2024 03/12/2022, 03/12/2022, 02/10/2021, Additional history exists Fall Risk Assessment 06/15/2024 06/15/2023, 05/21/2021, 01/22/2021, Additional history exists Covid-19 Vaccine (2024-08 6 season) 2025 10/07/2020, 08/27/2020 Influenza Vaccine (#1) 2025 , 04/06/2021, 05/19/2020, Additional history exists Colon Cancer Screening-Colonoscopy 04/10/2029 04/10/2019, 04/10/2019, 11/27/2008, Additional history exists Colon Cancer Screening-CT Colonography Discontinued 04/10/2019, 04/10/2019, 11/27/2008, Additional history exists Colon Cancer Screening-DNA Stool Discontinued 04/10/2019, 04/10/2019, 11/27/2008, Additional history exists Colon Cancer Screening-FIT Discontinued 04/10, 04/10/2019, 11/27/2008, Additional history exists Colon Cancer Screening-Sigmoidoscopy Discontinued 04/10/2019, 04/10/2019, 11/27/2008, Additional history exists Zoster Vaccine Completed 04/16/2019, 11/23, 11/22/2008 Pneumococcal vaccine 65+ Completed 020, 11/29/2012, 10/03/2007 Medical Devices Implanted Type Area Bowling Ball Weigher And Packer Device Identifier Shelf Expiration Date Model / Serial / Lot [employer]ch Upsylon 35.4cm Elongation Profile Lightweight Large Pore Low [id number] - Snone - [id number] Implanted:Qty: 1 on 06/14/2023 by Jeremiah Hernandez MD at [facility] Mesh N/A: Pelvis CR2 Venkatesh [id number] 12/22/2025 [id number] / NONE / [id number] [employer] Sling Urinary Incontinence Female Stress Short Desara Blue Gerardo-[id number] - [employer]one - [id number] Implanted:Qty: 1 on 06/14/2023 by Jeremiah Hernandez MD at [facility] N/A: Pelvis [employer] 02/21/2026 GERARDO-[id number] S / NONE / [id number] Procedures Procedure Name Priority Date/Time Associated Diagnosis Comments SCREENING MAMMOGRAM BILATERAL W DOUGLAS Schedule Routine, Read Routine (OP Routine) 05/13/2020 COLONOSCOPY Routine 04/10/2019 DEXA SCAN Routine 04/05/2016 from Last 3 Months or Most Recently Relevant to Health Maintenance Results * Screening Mammogram Bilateral W Douglas (05/13/2020) Anatomical Region Laterality Modality Breast Bilateral Mammography Historical Provider IMG MAMMO PROCEDURES Ronda l Result * COLONOSCOPY (04/10/2019) Colonoscopy Unknown Historical Provider HEALTH MAINTENANCE Final Result * DEXA SCAN (04/05/2016) DEXA Scan Abnormal Comment:osteopenia Historical Provider HEALTH MAINTENANCE Final Result from Last 3 Months or Most Recently Relevant to Health Maintenance Insurance [facility] MEDICARE [facility] MEDICARE Address: [facility] [id number] [place] [address] [employer]ET[employer] MEDICARE Advance Directives For more information, please contact: [phone] * Full Code (Latest Code Status on File) Date Activated Date Inactivated Comments 06/14/2023 1:53 PM 06/15/2023 4:55 PM Care Teams Board Certified Family Physician Relationship Specialty Start Date End Date Bakari Colorado MD [id number] [facility] [place] [id number] PCP - General Internal Medicine 06/03/23
--- OUTSIDE RECORDS SUMMARY | 2025-07-23 01:09 | XMS_ITS | Clinical Summary ---
Author Organization [facility] Address [address] [place] [address] Phone Care Team Providers Care Green Plumber Name Role Phone Bakari Colorado MD Primary Care Provider [phone] Allergies Active Allergy Reactions Criticality Noted Date Comments Lactose Unknown 03/20/2019 Medications DULoxetine (CYMBALTA) 60 mg Oral CpDR Take 60 mg by mouth daily. Active traZODone (DESYREL) 50 mg Oral tablet Take 75 mg by mouth daily at bedtime. Active omega-3 fatty acids-fish oil 300-1,000 mg Oral Cap Take 1 Cap by mouth daily. Active multivitamins- minerals-lutei n (CENTRUM SILVER) Oral Tab Take 1 Tab by mouth daily. Active clonazePAM (KLONOPIN) 0.5 mg Tablet Take 0.5 mg by mouth 1 time daily as needed Pt takes 1/2 pill as needed. 6 Active calcium-cholec alciferol (OS-GERARDO 500+D) 500 mg(1,250mg) -200 unit tablet Take 1 Tablet by mouth daily. Active aspirin (ECOTRIN EC) 81 mg Tablet, Delayed Release (E.C.) Take 81 mg by mouth daily. Active atorvastatin (LIPITOR) 10 mg tablet Take 10 mg by mouth late in the day. Active pantoprazole (PROTONIX) 40 mg Tablet, Delayed Release (E.C.) 1 tablet 1 Active gabapentin (NEURONTIN) 100 mg capsule Take 100 mg by mouth daily. 2 Active Myrbetriq 50 mg Extended Release 24 hour tablet 2 Active famotidine (PEPCID) 40 mg tablet 2 Active vibegron (GEMTESA ORAL) Take by mouth. Active Magnesium 200 mg Tablet Take 200 mg by mouth daily. Active CHOLECALCIFERO L, VITAMIN D3, ORAL Take by mouth. Activ e POTASSIUM CHLORIDE ORAL Take by mouth. A ctive flu vaccine trivalent (65 yr+)(PF)(FLUZO NE HIGH DOSE) 180 mcg/0.5 mL IM syringe Inject 0.5 mL (180 mcg) by intramuscular injection. 0.5 mL 05/28/2024 10:13 AM HOSPITAL ADMITTING CLERK 4 Active Active Problems Patient Care Coordination No te Formatting of this note migh t be different from the original. 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 Abnormal mammogram of left breast 09/11/2015 IBS (irritable bowel syndrome) 05/17/2015 Gluten intolerance 05/15/2015 GERD (gastroesophageal reflux disease) 5 Encounters Date Type Department Care Team Description 07/16/2025 External Device Data [facility] ABSTRACTION Provider, Abstract 05/22/2025 External Device Data [facility] ABSTRACTION Provider, Abstract 05/22/2025 External Device Data [facility] ABSTRACTION Provider, Abstract 05/14/2025 External Device Data ST[facility] ABSTRACTION Provider, Abstract 05/08/2025 11:15 AM CDT Office Visit [facility] [address] [place] [address] Amina Williamson MD Ductal carcinoma in situ (DCIS) of left breast (Primary Dx); Vitamin D deficiency from Last 3 Months Family History Medical History Relation Name Comments Colonic polyp Father Other Father stomach issues, dementia,depression Stroke Mother 2 years ago Healthy Sister Breast Cancer Neg Hx Cancer Neg Hx Colon Cancer Neg Hx Ovarian Cancer Neg Hx Relation Name Status Comments Father Mother Alive Sister Alive Social History Tobacco Use Types Packs/Day Years Used Date Smoking Tobacco: Former Cigarettes 0.3 5 Passive Smoke Exposure: Never Smokeless Tobacco: Never Quit: 07/25/1964 Tobacco Cessation:Counseling Given: Not Answered Alcohol Use Standard Drinks/Week Comments Yes 1 (1 standard drink = 0.6 oz pure alcohol) 1-2 galsses of wine with dinner on w/e Comments No Sex and Gender Information Value Date Recorded Sex Assigned at Not on file Legal Sex Female 5:43 AM HOSPITAL ADMITTING CLERK Gender Identity Not on file Sexual Orientation Not on file Occupation Industry Job Start Date Job End Date Not on file Not on file Not on file Not on file Last Filed Vital Signs Vital Sign Reading Time Taken Comments Blood Pressure 108/60 05/08/2025 11:20 AM CDT Pulse 73 05/08/2025 11:20 AM CDT Temperature 36.2 C (97.1 F) 05/08/2025 11:20 AM CDT Respiratory Rate 18 10/27/2023 11:1 4 AM CDT Oxygen Saturation 95% 05/08/2025 11: 20 AM CDT Inhaled Oxygen Concentration - - Weight 59.3 kg (130 lb 12.8 oz) 025 11:20 AM CDT Height 157.5 cm (5' 2) 05/08/2025 11:2 0 AM CDT Body Mass Index 23.92 05/08/2025 11:20 AM CDT Plan of Treatment Upcoming Encounters Date Type Department Care Team (Late st Contact Info) Description 11/07/2025 12:00 PM CDT Office Visit [facility] [address] [place] [address] Wilbru Dorman MD [address] [place] [address] 05/08/2026 10:15 AM CDT Office Visit [facility] [address] [place] [address] Amina Williamson MD [address] [place] [address] Health Maintenance Due Date Last Done Comments DTAP/TDAP/TD VACCINES (1 - Tdap) 1960 RSV VACCINE (60+ or ) (1 - 1-dose 75+ series) 2016 COLORECTAL SCREENING 04/10/2022 04/10/2019, 11/05/19 18 INFLUENZA VACCINE (#1) 2025 , 05/19/2020, 05/03/2019, Additional history exists COVID-19 Vaccine (3 - 2024-2 6 season) 2025 10/07/2020, 08/27/2020 OSTEOPOROSIS SCREENING 03/12/2027 03/12/2022, 2020 ZOSTER VACCINE Completed 04/16/2019, 11/23, 11/22/2008 PNEUMOCOCCAL VACCINE 50+ YEARS Completed 1 , 11/29/2012, 10/03/2007 Procedures Procedure Name Priority Date/Time Associated Diagnosis Comments XR DEXA BONE DENSITY AXIAL 1 OR MORE SITES Routine 03/12/2022 11:40 AM CDT Osteoporosis, unspecified osteoporosis type, unspecified pathological fracture presence from Last 3 Months or Most Recently Relevant to Health Maintenance Results * XR DEXA BONE DENSITY AXIAL 1 OR MORE SITES (03/12/2022 11:40 AM CDT) Anatomical Region Laterality Modality Computed Radiogr aphy Impressions 03/12/2022 12:20 PM CDT : Patient has been on Prolia since 2017 for positive FRAX calculation. Her bone density is stable. Continue the Prolia and repeat the bone density in 1 year. Maurisio Atkins MD DIAGNOSTIC IMAGING ORDERABLE S Final Result from Last 3 Months or Most Recently Relevant to Health Maintenance Insurance AETNA PPO [facility] RX AETNA Medicare Part D RX [employer] RX Member Subscriber Plan / Payer (Ef fective for All Dates) Name:SANA DIEZ Relation to Subscriber:Self Name:Sana Diez Payer ID:Not on file Group ID:[id number] Type:RX Medicare Part D Address: [address] Advance Directives For more information, please contact: [phone] * Full Code (Latest Code Status on File) Date Activated Date Inactivated Comments 11/04/2017 2:21 PM 11/04/2017 5:34 PM * Full Code Date Activated Date Inactivated Comments 11/04/2017 1:13 PM 11/04/2017 2:21 PM * Full Code Date Activated Date Inactivated Comments 10/29/2015 12:56 PM 10/29/2015 5:05 PM * Full Code Date Activated Date Inactivated Comments 10/29/2015 8:08 AM 10/29/2015 12:56 PM Care Teams Green Plumber Relationship Specialty Start Date End Date Bakari Colorado MD [address] [place] [id number] PCP - General Internal Medicine 09/30/22
[2025-07-23 10:00] VITALS: BP 116/76; PULSE 93; RESP 16; TEMP 36.6; O2SAT 94; BMI 23.6
[2025-07-23] MEDS: LACTATED RINGERS 1,000 ML 150 ML IV CONT (10:15)
--- NOTE | 2025-07-23 10:40 | PM.HPGS ---
History of Present Illness History of Present Illness Consent: Risks, benefits, and alternatives have been discussed and questions answered. Patient agrees to proceed with procedure. Chief complaint: Personal history of colon polyps, unspecified Narrative: Sana Diez is a 84 year old female who is here for surveillance colonoscopy it is due to history of colonic polyps. Patient also has a history of chronic GERD. Review of Systems Review of Systems: All systems reviewed & are unremarkable except as noted in HPI and below PMFSH Past Medical History Medical History GERD without esophagitis (Unknown) Small intestinal bacterial overgrowth (SIBO) (Unknown) Surgical History Surgical History Hx of tubal ligation Social History Social History Smoking status: Never smoker Alcohol intake: current Drinks per week: 3 Substance use: never Substance use type: does not use Living arrangements: alone Spiritual care concerns: No Meds Home Medications and Allergies Home Medications ?Medication ?Instructions ?Recorded ?Confirmed ?Type atorvastatin 10 mg tablet 10 mg PO DAILY 10/10/21 07/23/25 History famotidine 40 mg tablet 40 mg PO DAILY 10/10/21 07/23/25 History pantoprazole 40 mg tablet,delayed 40 mg PO DAILY 10/10/21 07/23/25 History release trazodone 50 mg tablet 50 mg PO HS 10/10/21 07/23/25 History gabapentin 100 mg capsule 100 mg PO DAILY 08/07/24 07/23/25 History vibegron 75 mg tablet (Gemtesa) 75 mg PO DAILY 08/07/24 07/23/25 History duloxetine 60 mg capsule,delayed 60 mg PO DAILY 04/10/25 07/23/25 History release metformin 500 mg tablet,extended 500 mg PO QPM 04/10/25 07/23/25 History release 24 hr buspirone 10 mg tablet 10 mg PO DAILY 06/28/25 07/23/25 History Allergies Allergy/AdvReac Type Severity Reaction Status Date / Time No Known Allergies Allergy Verified 07/23/25 09:58 Vital Signs Vital Signs - 24 hr 07/23/25 10:00 Temperature 97.8 F Pulse Rate 93 Respiratory Rate 16 Blood Pressure 116/76 Pulse Oximetry 94 Oxygen Delivery Room Air Exam Const: General: healthy appearing and no acute distress Nutritional Appearance: well nourished Orientation/consciousness: patient oriented x3 Limitations: no limitations Neck: Neck: normal visual inspection Chest: Chest palpation & inspection: normal inspection of the chest Resp: Effort & Inspection: normal respiratory effort Auscultation: clear to auscultation bilaterally Cardio: Rate: regular rate Rhythm: regular rhythm GI: Auscultation: normal bowel sounds Other: no tenderness Back/Spine/Pelvis: Other: tender left flank above asis Skin: Other: abrasion left thigh and lip and nose no swelling or bony tenderness Neuro: General: patient oriented x3 Speech: normal speech Gait exam (Neuro): Normal gait present Extrem: General: no clubbing, cyanosis or edema Other: full ROM left hip and thigh without pain Psych: Mental Status: mental status grossly normal Affect: normal affect Attitude: cooperative Assessment and Plan Assessment and plan (1) GERD without esophagitis: Onset Date: Unknown Code(s): K21.9 - Gastro-esophageal reflux disease without esophagitis Status: Acute (2) Polyp, colonic: Code(s): K63.5 - Polyp of colon Status: Acute Plan 84-year-old female with chronic GERD. Patient had this upon polyp in the past. He she is here for EGD and colonoscopy today.
[2025-07-23] MEDS: BENZOCAINE (*SP) 60 ML SPRAY CAN (HURRICAINE) 1 SPRAY MUCOUS MEM (10:53)
--- NOTE | 2025-07-23 11:05 | SUR.OPER ---
EGD ended 1100 and colonoscopy started 110
--- NOTE | 2025-07-23 11:06 | S_PTH ---
PATIENT: Sana Diez LOC: [facility]#:[id number] AGE/SX: 84/F ROOM: RE07/23/[address]: Adam Elaine MD : 1940 BED: DIS: 07/23/2025 SPEC #: [id number] RECD: 07/23/25 11:22 STATUS: MANSI WILSON #: [id number] SANTIAGO: 07/23/25 11:[address]: Alvarado Gama DEPT: [facility] Surgical RECD BY: Paras Elizabeth ENTERED: 07/23/25 11:22 SP TYPE: Surgical OTHR DR: Bakari Colorado, MD Adam Elaine MD Tissues: A - Gastric Polyp B - Colon Polypectomy C - Rectal Polyp Procedures: Hematoxylin and Eosin Stain Gross and Microscopic Level 4
[2025-07-23 11:21] VITALS: BP 101/44; PULSE 77; RESP 16; O2SAT 100
[2025-07-23 11:31] VITALS: BP 105/51; PULSE 78; RESP 19; O2SAT 100
--- NOTE | 2025-07-23 11:34 | WPDANESEPPF ---
Anes - Initial Pre Proc Eval Procedure: Operation Date: 07/23/25 12:45 Proposed Procedures p EGD & Screening Colonoscopy - Adam Elaine MD Date/Time: 07/23/25 11:34 Surgeon: Adam Elaine MD Pre Op Diagnosis: Personal history of colon polyps, unspecified Patient Data Age: 84 Gender: F Height: 1.57 m Weight: 58.6 kg Last Vital Signs Temp 36.6 C 07/23/25 10:00 Pulse 77 07/23/25 11:21 Resp 16 07/23/25 11:21 BP 101/44 L 07/23/25 11:21 Pulse Ox 100 07/23/25 11:21 O2 Del Method Room Air 07/23/25 11:21 Allergies Allergy/AdvReac Type Severity Reaction Status Date / Time No Known Allergies Allergy Verified 07/23/25 09:58 Home Medications ?Medication ?Instructions ?Recorded ?Confirmed ?Type atorvastatin 10 mg tablet 10 mg PO DAILY 10/10/21 07/23/25 History famotidine 40 mg tablet 40 mg PO DAILY 10/10/21 07/23/25 History pantoprazole 40 mg tablet,delayed 40 mg PO DAILY 10/10/21 07/23/25 History release trazodone 50 mg tablet 50 mg PO HS 10/10/21 07/23/25 History gabapentin 100 mg capsule 100 mg PO DAILY 08/07/24 07/23/25 History vibegron 75 mg tablet (Gemtesa) 75 mg PO DAILY 08/07/24 07/23/25 History duloxetine 60 mg capsule,delayed 60 mg PO DAILY 04/10/25 07/23/25 History release metformin 500 mg tablet,extended 500 mg PO QPM 04/10/25 07/23/25 History release 24 hr buspirone 10 mg tablet 10 mg PO DAILY 06/28/25 07/23/25 History Patient hx anesthesia problems: none Family hx anesthesia problems: none Results Review: All pre-operative results and documents have been reviewed as part of the pre-operative evaluation. [facility] Past Medical History Medical History (Updated 07/23/25 @ 11:35 by Ken Ramos DO) Hyperlipidemia Cancer of left breast GERD without esophagitis (Unknown) Small intestinal bacterial overgrowth (SIBO) (Unknown) Surgical History Surgical History Hx of tubal ligation Social History Social History Smoking status: Never smoker Alcohol intake: current Drinks per week: 3 Substance use: never Substance use type: does not use Living arrangements: alone Spiritual care concerns: No Anes - Eval Final PreProcedure Day of Procedure 07/23/25 11:34 Patient weight: normal Heart: regular rate and rhythm Lungs: clear to auscultation and normal air movement Airway: Mallampati scale class II Neurological: alert and oriented Last oral intake: >/= 8 hours ASA classification: III Emergent: no Anesthetic plan: proceed Anesthesia type and monitoring: general GIVS and standard monitoring Results Review: All pre-operative results and documents have been reviewed as part of the pre-operative evaluation. Informed Consent: The patient's anesthetic plan and its attendant risks and benefits were discussed with the patient/family/POA. Questions were solicited and answers provided to the satisfaction of the patient/family/POA.
[2025-07-23 11:41] VITALS: BP 115/53; PULSE 70; RESP 23; O2SAT 98
== END 2025-07-23 11:51 | disposition home or self-care (01) ==
PROVIDERS: Internal Medicine Gastroenterology; PCP Internal Medicine; Referring Provider Internal Medicine; Visit Provider Internal Medicine Gastroenterology
PROC: 0DJ08ZZ Inspection of Upper Intestinal Tract, Via Natural or Artificial Opening Endoscopic (ICD-10-PCS; CPT 45378; principal; 2025-07-23 12:45)
DX: Z12.11 Encounter for screening for malignant neoplasm of colon (principal); D12.0 Benign neoplasm of cecum; K62.1 Rectal polyp; K57.30 Diverticulosis of large intestine without perforation or abscess without bleeding; K31.7 Polyp of stomach and duodenum; K64.4 Residual hemorrhoidal skin tags; K21.9 Gastro-esophageal reflux disease without esophagitis
CPT/HCPCS: 45385; 45380; 43251; 88305; J2003; J2371; J2704; J7120